=== PATIENT | female | born 1985 | race African-American/Black ===

== ENCOUNTER 2022-03-28 10:38 | Emergency (ER) | payer BC ==
--- OUTSIDE RECORDS SUMMARY | 2022-03-28 10:42 | XMS REPORT | Continuity of Care Document ---
:1985 Author Organization [facility] t Address [address] [place] [address] [place] [id number] Care Team Providers Name Role Phone Susan Bocanegra Primary Care Physician [phone] VANESSA Attending Clinician Unavailable Adan_Rudi Attending Clinician Unavailable Adam Attending Clinician Unavailable VANESSA Admitting Clinician Unavailable Sukila_Rudi Admitting Clinician Unavailable Luis Manuel_Carolyn Admitting Clinician Unavailable Payers Payer Name Policy Type Policy Number Effective Date Expiration Date S ource [place] [id number] 2021 [place] 00:[place]AND[place] [id number] 2020 2021 ADVANTAGE (HMO) 00:00:00 00:00:00 AETNA (POS) [id number] 2017 00:00:00 Problems Condition Condition Condition Status Onset Resolution Last Treating Co mments Source Name Details Category Date Date Treatment Clinician Date 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 [facility] diogram diogram 7-06 da abnormal Abnormal 00:00: Medica l 00 Group Benign Benign Problem Active [place] essential Essential 6-28 da hypertensi Hypertensi 00:00: Me dical on on Group Insertion Insertion Problem Active [facility] of of 4-22 da intrauteri Intrauteri 00:00: Me dical ne ne 00 Group contracept Contracept blake device blake Device Intramural Intramural Problem Active 2018-0 [facility] leiomyoma Leiomyoma 3-09 da of uterus of Uterus 00:00: Medi erin 00 Group Essential Essential Problem Active [facility] hypertensi Hypertensi da on on Medical Group Fatigue Fatigue Problem Active [facility] Acute Acute Problem Active [facility] sinusitis Sinusitis [facility] Diarrhea Diarrhea Problem Active [facility] Allergies, Adverse Reactions, Alerts This patient has no known allergies or adverse reactions. Social History Social Habit Start Date Stop Date Quantity Comments Source History [facility] Drinks History [facility] Tobacco use and 2018-03-11 2018-03-11 Smokeless tobacco [facility] exposure 00:00:00 00:00:00 non-user Hospital Alcohol intake 2018-03-11 2018-03-11 Current [facility] 00:00:00 00:00:00 non-drinker of Hospital alcohol (finding) History [facility] 2018-03-11 2018-03-11 1 [facility] Frequency 00:00:00 00:00:00 Hospita l Sex Assigned At [birth year] [facility] 00:00[facility]00 [facility] Smoking Status Start Date Stop Date Source Never smoked tobacco [facility] Medications Ordered Filled Start Stop Current Ordering Indication Dosage Frequency Signature Comments Components Source Medication Medication Date Date Medication? Clinician (SIG) Name Name pantoprazol 2018-03 Yes 40mg QD Take 1 Meth azeem e 2-03 tablet (40 st (PROTONIX) 00:00: mg total) [facility] sp[facility] 40 MG EC 00 by mouth l tablet daily. pantoprazol 2017-03 Yes 40mg QD Take 1 Meth azeem e 2-20 tablet (40 st (PROTONIX) 00:00: mg total) [facility] 40 MG EC 00 by mouth l tablet daily. amlodipine amlodipine No amlodipine [facility] 5 mg tablet 5 mg tablet 5 mg d a TAKE 1 TAKE 1 tablet Medical TABLET BY TABLET BY TAKE 1 Winston up MOUTH DAILY MOUTH DAILY TABLET BY MOUTH DAILY benzonatate benzonatate No 1capsul Q8H benzonatat [place] 200 mg 200 mg e(s) e 200 mg da capsule capsule capsule Medica l Take 1 Take 1 Take 1 Group capsule capsule capsule every 8 every 8 every 8 hours by hours by hours by oral route oral route oral route as needed. as needed. as needed. as needed as needed as needed for cough for cough for cough cefdinir cefdinir No 1capsul Q12H cefdinir [place] 300 mg 300 mg e(s) 300 mg da capsule capsule capsule Medica l Take 1 Take 1 Take 1 Group capsule capsule capsule every 12 every 12 every 12 hours by hours by hours by oral route oral route oral route for 10 for 10 for 10 days. days. days. hydrochloro hydrochloro No 1 Q1D hydrochlor [facility] thiazide thiazide othiazide da 12.5 mg 12.5 mg 12.5 mg Medica l tablet Take tablet Take tablet Group 1 tablet 1 tablet Take 1 every day every day tablet by oral by oral every day route. route. by oral route. Mirena 20 Mirena 20 No 1device Mirena 20 [place] mcg/24 mcg/24 (s) mcg/24 da hours (7 hours (7 hours (7 Med ical yrs) 52 mg yrs) 52 mg yrs) 52 mg Group intrauterin intrauterin intrauteri e device e device ne device Take 1 Take 1 Take 1 device by device by device by intrauterin intrauterin intrauteri e route. e route. ne route. Immunizations Ordered Immunization Filled Immunization Date Status Commen ts Source Name Name COVID-19, mRNA, COVID-19, mRNA, 2020-05-21 Completed Richard linton LNP-S, PF, 100 LNP-S, PF, 100 00:00:00 Medica l Group mcg/0.5 mL dose mcg/0.5 mL dose (Moderna) (Moderna) Tdap Tdap 2008-03-23 Completed [facility] 00:00:00 Medical Group Vital Signs Vital Name Observation Time Observation Value Comments Source BP Diastolic 2021-07-23 00:00:00 108 [facility]Hg[facility] Height 2021-07-23 00:00:00 65 [in_i] [facility] BMI (Body Mass 2021-07-23 00:00:00 40.6 kg/m2 [facility] Medical Index) Group BP Systolic 2021-07-23 00:00:00 158 mm[facility] Body Weight 2021-07-23 00:00:00 3904 [oz_av] [facility] BP Diastolic 2020-11-15 00:00:00 100 mm[Hg] [facility] Height 2020-11-15 00:00:00 65 [in_i] [facility] BMI (Body Mass 2020-11-15 00:00:00 39.4 kg/m2 [facility] Medical Index) Group BP Systolic 2020-11-15 00:00:00 150 mm[Hg] [facility] Body Weight 2020-11-15 00:00:00 3792 [oz_av] [facility] BP Diastolic 2020-09-17 00:00:00 108 mm[Hg] [facility] Height 2020-09-17 00:00:00 65 [in_i] [facility] BMI (Body Mass 2020-09-17 00:00:00 39.5 kg/m2 [facility] Medical Index) Group BP Systolic 2020-09-17 00:00:00 152 mm[Hg] [facility] Body Weight 2020-09-17 00:00:00 3799 [oz_av] [facility] BP Diastolic 2018-07-12 00:00:00 89 mm[Hg] [facility] Height 2018-07-12 00:00:00 65 [in_i] [facility] BMI (Body Mass 2018-07-12 00:00:00 36.5 kg/m2 [facility] Medical Index) Group BP Systolic 2018-07-12 00:00:00 129 mm[Hg] [facility] Body Weight 2018-07-12 00:00:00 219.4 [lb_av] [facility] Body Weight 2018-06-16 00:00:00 223 [lb_av] [facility] BP Diastolic 2018-06-16 00:00:00 90 mm[Hg] [facility] Height 2018-06-16 00:00:00 65 [in_i] [facility] BMI (Body Mass 2018-06-16 00:00:00 37.1 kg/m2 [facility] Medical Index) Group BP Systolic 2018-06-16 00:00:00 134 mm[Hg] [facility] Procedures Procedure Date / Time Performing Clinician Source Performed ECG WITH INTERPRETATION 2020-09-17 00:00:00 Ramos shaila Medical 12 LEADS Group US, pelvis 2018-07-12 00:00:00 [facility] Plan of Care Planned Activity Planned Date Details Comments Source Future Scheduled Test 2022-03-16 COVID-19 VACCINE [facility] 05:19:36 (#1) [code = COVID-19 VACCINE (#1)] Future Scheduled Test 2022-03-16 Screening for [facility] 05:19:36 malignant neoplasm of cervix (procedure) [code = 644095618] Future Scheduled Test 2022-03-16 INFLUENZA VACCINE [facility] 05:19:36 [code = INFLUENZA VACCINE] Diagnostic Test 2021-07-23 CMP, serum or Long M edical Pending 00:00:00 plasma [code = CMP, Group serum or plasma] Diagnostic Test 2021-07-23 lipid panel, serum [facility] voip technician Medical Pending 00:00:00 [code = lipid Group panel, serum] Diagnostic Test 2021-07-23 CBC w/ diff [code = [facility] Pending 00:00:00 CBC w/ diff] Group Encounters Start End Encounter Admission Attending Care Care Encounter Source Date/Time Date/Time Type Type Clinicians Facility Department ID 2021-10-10 2021-10-10 Outpatient DICLEBART_ VAANTHONY [facility] [id number] [place] 04:28:00 04:28:00 APPLE Garcia21 da [facility] Outre h Program 2021-09-18 2021-09-18 Outpatient Koudela_A [facility] [id number] [place] 04:48:00 04:48:00 629 [facility] Group 2021-09-04 2021-09-04 Outpatient K[facility]ela_A [facility] [place] [id number]- [place] 03:30:00 03:30:00 615 [facility] 2021-07-23 2021-07-23 Torie Koudela_A [facility] [place] - 5606- [id number] [place] 00:00:00 00:00:00 Discovery Adan 503 da PA-C: 600 [facility] - [address], [place] [address] , Ph. 2021-07-22 2021-07-22 Outpatient Koudela_A [facility] [id number] [place] 12:52:00 12:52:00 502 da Medical Group 2021-06-05 2021-06-05 Outpatient Koudela_A [facility] [id number] [place] 04:34:00 04:34:00 316 [facility] Medical Group 2021-03-02 2021-03-02 Outpatient K[facility]ela_A [facility] [id number] [place] 04:13:00 04:13:00 211 da Medical Group 2021-02-19 2021-02-19 Outpatient Koudela_A [facility] [id number] [place] 01:41:00 01:41:00 130 da Medical Group 2021-01-26 2021-01-26 Outpatient Koudela_A [facility] [id number] [place] 03:33:00 03:33:00 106 da Medical Group 2020-12-22 2020-12-22 Outpatient Koudela_A [facility] [id number] [place] 07:24:00 07:24:00 002 da Medical Group 2020-12-17 2020-12-17 Outpatient Koudela_A [facility] [id number]- [place] 12:27:00 12:27:00 927 da Medical Group 2020-11-17 2020-11-17 Outpatient Koudela_A [facility] [id number] [place] 02:30:00 02:30:00 828 [facility] Medical Group 2020-11-15 2020-11-15 Torie Koudela_A MM [place] - 5606- 10 [place] 00:00:00 00:00:00 Discovery Adan 826 da PA-C: [address] [facility] [address], [place] [address] , Ph. 2020-09-17 2020-09-17 Torie Membrenoudela_A MM [place] - 5606- 10 [place] 00:00:00 00:00:00 Discovery Adan 628 da PA-C: 600 Medical Medica [address] [place] [address] , Ph. 2020-09-15 2020-09-15 Outpatient G_Pappas [facility] [id number] [place] 03:24:00 03:24:00 626 da Medical Group 2020-09-14 2020-09-14 Outpatient G_Pappas [facility] MM [id number] [place] 05:19:00 05:19:00 625 da Medical Group 2020-02-08 2020-02-08 Outpatient G_Pappas [facility] MM [id number] [place] 02:21:00 02:21:00 118 da Medical Group 2019-07-20 2019-07-20 Outpatient G_Pappas [facility] MM [id number] [place] 12:41:00 12:41:00 429 da Medical Group 2019-06-15 2019-06-15 Outpatient G_Pappas [facility] MM [id number] [place] 01:18:00 01:18:00 325 da Medical Group 2019-05-05 2019-05-05 Outpatient G_Pappas [facility] MM [id number] [place] 03:25:00 03:25:00 213 da Medical Group 2018-07-12 2018-07-12 Irina Mendez [facility] [place] - [id number] [place] 00:00:00 00:00:00 Discovery René 422 da WHNP: 600 Medical Medica l [facility] [address] [address] , Ph. [phone] 2018-06-16 2018-06-16 [place] [facility] [place] - [id number] [place] 00:00:00 00:00:00 Devang Shirley 327 da Gabriela Tai Medicrudi zhou MD: [address] [address] , Ph. [phone] Results Test Description Test Time Test Comments Results Result Comments Source rapid strep group A, throat 2020-11-15 15:45:00 Test Item Value Reference Range Interpretation Comme nts Strep Result (test code = Strep Result) [id number] 16:00:33 Test Item Value Reference Range Interpretation Comments Test (test code = negative Test) [id number] 00:00:00 Test Item Value Reference Range Interpretation Comments HPV type-detect 3.0 by next gen not detected sequencing (reflex to HPV-16 risk assessment status) (test code = HPV type-detect 3.0 by next gen sequencing (reflex to HPV-16 risk assessment status)) General categories normal [interpretation] of Cervical or vaginal smear or scraping by Cyto stain (test code = 63665-7) [facility]
[2022-03-28 11:56] LABS: Urine Blood Negative (Negative); Urine Glucose Negative (Negative); Urine Protein Trace (Negative); Urine pH 7.5 (5.0-7.0)
[2022-03-28 12:01] LABS: Absolute Lymphocytes (CBC) 0.9 K/uL (0.7-4.9); Hematocrit 44.8 % (36.0-45.0); Lymphocytes % 26.4 % (15.3-44.8); MCV 87.9 fL (80-100); MPV 7.4 fL (7.6-11.3); RBC Red Blood Cell Count 5.09 M/uL (3.86-4.86)
[2022-03-28 12:04] LABS: Urine Bacteria None Seen /HPF (<20); Urine Mucus Slight /HPF (None Seen); Urine RBC <5 /HPF (None Seen)
[2022-03-28 12:24] LABS: Albumin 4.3 g/dL (3.4-5.0); Bilirubin Total 0.3 mg/dL (0.2-1.0); Potassium 3.5 mmol/L (3.5-5.1); Protein, Total 8.4 g/dL (6.4-8.2)
--- NOTE | 2022-03-28 13:13 | RAD REPORT ---
EXAM DESCRIPTION: CT - Abdomen Pelvis W Contrast - 03/28/2022 12:57 pm CLINICAL HISTORY: diffuse abdominal pain COMPARISON: No comparisons TECHNIQUE: Biphasic, helical CT imaging of the abdomen and pelvis was performed following 100 ml non -ionic IV contrast. Oral contrast: No. All CT scans are performed using dose optimization technique as appropriate and may include automated exposure control or mA/KV adjustment according to patient size. FINDINGS: No suspicious findings in the lung bases. The liver, spleen, and pancreas show no suspicious findings. Gallbladder and biliary tree are also wi thout suspicious finding. Symmetric renal function is seen with no hydronephrosis or suspicious renal mass. No pyelonephritis o r acute parenchymal process. No bladder abnormalities. No adrenal abnormalities. No ovarian or adnexal abnormality seen. IUD is in place in the fundal portion of the endometrial cavi ty. The patient has a 6 centimeter rounded isodense mass in the anterior mid and fundal portion of th e uterus. This posteriorly displaces the endometrial canal. Uterine fibroid is the single most likely etiology. No dilated bowel loops or bowel wall thickening. Appendix is normal. No acute GI process evident. No free air or pneumatosis. Trace amount of free fluid in the cul de sac is well within physiologic limi ts. No hernia, mass or bulky lymphadenopathy. No suspicious bony findings. IMPRESSION: Contrast enhanced CT abdomen and pelvis showing no acute or emergent finding. Anterior mid and fundal portion the uterus contains a 6 centimeter mass. Uterine fibroid is the singl e most likely etiology. IUD is in place appears well positioned. An acute GI, or SPECIAL PROCEDURES TECH process not i dentifiable.
[2022-03-28] MEDS ORDERED: KETOROLAC 30 MG/ML INJ ONE (14:46)
--- NOTE | 2022-03-28 15:16 | EDPHYS ---
Physician Documentation [facility] Name: Rod Harper Age: 36 yrs Sex: Female : 1985 Arrival Date: 03/28/2022 Time: 10:40 Bed 19 Private MD: ED Physician Jp Novak HPI: 03/28 13:33 This 36 yrs old Black Female presents to ER via Wheelchair with complaints of Abdominal ms3 Pain. 13:33 36-year-old female with past medical history of hypertension presents for lower ms3 abdominal pain that began yesterday. Patient states this is increased and is now located in her back beginning this morning. Patient rates her pain 10/10 headache described as stabbing. Patient states the pain is worse with movement. Patient denies urinary frequency, dysuria, urgency, fevers, chills, vomiting. Patient endorses nausea.. 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 - Social history:: Smoking status: Patient denies any tobacco usage or history of. ROS: 13:33 Constitutional: Negative for fever, and chills. Neck: Negative for injury, pain, and ms3 swelling, Cardiovascular: Negative for chest pain, and palpitations. Respiratory: Negative for shortness of breath, cough, wheezing, and pleuritic chest pain. 13:33 Abdomen/GI: Positive for abdominal pain, nausea, Negative for vomiting. Exam: 13:33 Constitutional: This is a well developed, well nourished patient who is awake, alert, ms3 and in no acute distress. Head/Face: Normocephalic, atraumatic. Neck: Trachea midline, no cervical lymphadenopathy. Supple, full range of motion without nuchal rigidity, or vertebral point tenderness. No Meningismus. Chest/axilla: Normal chest wall appearance and motion. Nontender with no deformity. Cardiovascular: Regular rate and rhythm with a normal S1 and S2. No gallops, murmurs, or rubs. Normal PMI, no JVD. No pulse deficits. Respiratory: Lungs have equal breath sounds bilaterally, clear to auscultation and percussion. No rales, rhonchi or wheezes noted. No increased work of breathing, no retractions or nasal flaring. 13:33 Abdomen/GI: Inspection: abdomen appears normal, Bowel sounds: normal, Palpation: moderate abdominal tenderness, in all quadrants. Vital Signs: 10:56 BP 136 / 97; Pulse 81; Resp 17; Temp 98.7; Pulse Ox 100% ; Weight 99.79 kg; Height 5 ap3 ft. 5 in. (165.10 cm); Pain 10/10; 12:15 BP 142 / 93; Pulse 74; Resp 18; Pulse Ox 99% on R/A; db 14:46 BP 129 / 92; Pulse 91; Resp 20; Pulse Ox 100% on R/A; Pain 10/10; db 15:00 BP 137 / 80; Pulse 78; Resp 18; Pulse Ox 99% on R/A; Pain 6/10; db 10:56 Body Mass Index 36.61 (99.79 kg, 165.10 cm) ap3 MDM: 11:04 Patient medically screened. ms3 13:33 Differential diagnosis: appendicitis, bowel obstruction, cholecystitis, Cholelithiasis, ms3 diverticulitis, gastritis, non-specific abd pain. 18:52 Data reviewed: vital signs, nurses notes, lab test result(s), radiologic studies, CT ms3 scan, and as a result, I will discharge patient. Counseling: I had a detailed discussion with the patient and/or guardian regarding: the historical points, exam findings, and any diagnostic results supporting the discharge/admit diagnosis, lab results, radiology results, the need for outpatient follow up, to return to the emergency department if symptoms worsen or persist or if there are any questions or concerns that arise at home. Special discussion: I discussed with the patient/guardian in detail that at this point there is no indication for admission to the hospital. It is understood, however, that if the symptoms persist or worsen the patient needs to return immediately for re-evaluation. ED course: Discussed labs, CT, physical exam findings with patient. Patient to follow-up with Dr. Paez and Dr. Nicholas in 2 to 3 days. Patient understands agrees with plan. All questions were answered. Return precautions discussed include worsening symptoms, or any other concerns. On reevaluation patient's pain improved, alert and oriented x4, no apparent distress, nontoxic-appearing, ambulatory in the emergency department. Consideration of hospitalization if CT scan showed emergent process. CT scan does not reveal emergent process at this time. . 03/28 11:05 Order name: CBC with Diff ms3 03/28 11:05 Order name: CMP; Complete Time: 13:25 ms3 03/28 11:05 Order name: Lipase; Complete Time: 13:25 ms3 03/28 11:05 Order name: Urine Microscopic Only; Complete Time: 13:25 ms3 03/28 11:56 Order name: Urine Dipstick-Ancillary; Complete Time: 13:25 EDMS 03/28 12:00 Order name: Urine --Ancillary (enter results); Complete Time: 13:25 eb 03/28 11:05 Order name: CT Abd/Pelvis - IV Contrast Only; Complete Time: 13:25 ms3 03/28 11:05 Order name: IV Saline Lock; Complete Time: 11:57 ms3 03/28 11:05 Order name: Labs collected and sent; Complete Time: 11:57 ms3 Administered Medications: 11:40 Drug: NS 0.9% 1000 ml Route: IV; Rate: 1 bolus; Site: right antecubital; db 15:19 Follow up: Response: No adverse reaction; IV Status: Completed infusion; IV Intake: db 1000ml 11:40 Drug: Zofran (Ondansetron) 4 mg Route: IVP; Site: right antecubital; db 15:19 Follow up: Response: No adverse reaction db 11:40 Drug: morphine 4 mg Route: IVP; Infused Over: 4 mins; Site: right antecubital; db 15:20 Follow up: Response: No adverse reaction db 14:46 Drug: Ketorolac 10 mg 10 mg Route: IVP; Site: right antecubital; db 15:36 Follow up: Response: No adverse reaction; Pain is decreased db Disposition Summary: 03/28/22 15:15 Discharge Ordered Location: Home ms3 Condition: Stable ms3 Diagnosis - Abdominal pain, Generalized ms3 - Essential (primary) hypertension ms3 - Low back pain ms3 Followup: ms3 - With: Paez, Epi, DO - When: 2 - 3 days - Reason: Recheck today's complaints Followup: ms3 - With: Leif Cuevas MD - When: 2 - 3 days - Reason: Recheck today's complaints Discharge Instructions: - Discharge Summary Sheet ms3 - Abdominal Pain, Adult ms3 - Hypertension, Adult ms3 Forms: - Medication Reconciliation Form ms3 - Thank You Letter ms3 - Antibiotic Education ms3 - Prescription Opioid Use ms3 Signatures: Dispatcher [employer] EDFabi Miller RN RN ap3 Jp Novak DO DO ms3 Cande Sarabia, RN RN db
--- NOTE | 2022-03-28 15:16 | ER ---
Nurse's Notes [facility] Name: Rod Harper Age: 36 yrs Sex: Female : 1985 Arrival Date: 03/28/2022 Time: 10:40 Bed 19 Private MD: Diagnosis: Abdominal pain, Generalized;Essential (primary) hypertension;Low back pain Presentation: 03/28 10:56 Chief complaint: Patient states: she started having abdominal pain yesterday, but now ap3 goes into her back. patient states she had a normal bowel movement yesterday and has had no issues urinating. the patient reports the pain gets worse when she moves, and nothing makes the pain better. the patient states the pain is currently a 10/10. Coronavirus screen: At this time, the client does not indicate any symptoms associated with coronavirus-19. Ebola Screen: No symptoms or risks identified at this time. Initial Sepsis Screen: Does the patient meet any 2 criteria? No. Patient's initial sepsis screen is negative. Does the patient have a suspected source of infection? No. Patient's initial sepsis screen is negative. Risk Assessment: Do you want to hurt yourself or someone else? Patient reports no desire to harm self or others. Onset of symptoms was March 27, 2022. 10:56 Method Of Arrival: Wheelchair ap3 10:56 Acuity: PEDRO 3 ap3 Triage Assessment: 11:00 General: Appears uncomfortable, Behavior is calm. Pain: Complains of pain in abdomen ap3 Pain radiates to low back area Aggravated by increased activity, repositioning, Also complains of nausea. Neuro: Level of Consciousness is awake, alert, obeys commands, Oriented to person, place, time, situation, Speech is normal. Cardiovascular: Patient's skin is warm and dry. Respiratory: Airway is patent Respiratory effort is even, unlabored, Respiratory pattern is regular, symmetrical. GI: Reports nausea, normal bowel habits. 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 - Social history:: Smoking status: Patient denies any tobacco usage or history of. Screenin:[facility] ED Fall Risk Assessment (Adult) History of falling in the last 3 months, ap3 including since admission No falls in past 3 months (0 pts). Abuse screen: Denies threats or abuse. Nutritional screening: No deficits noted. Tuberculosis screening: No symptoms or risk factors identified. Assessment: 11:30 Reassessment: Patient appears in no apparent distress at this time. Patient and/or db family updated on plan of care and expected duration. Pain level reassessed. Patient is alert, oriented x 3, equal unlabored respirations, skin warm/dry/pink. STATES HAS LEFT LOWER ABDOMINAL PAIN THAT STARTED YESTERDAY. DENIES N/V. General: Appears in no apparent distress. uncomfortable, Behavior is calm, cooperative. Pain: Complains of pain in low back area and abdomen. Neuro: No deficits noted. Level of Consciousness is awake, alert, obeys commands, Oriented to person, place, time, situation. Cardiovascular: No deficits noted. Respiratory: No deficits noted. Airway is patent Respiratory effort is even, unlabored, Respiratory pattern is regular, symmetrical. GI: Bowel sounds present X 4 quads. Abd is soft Abdomen is tender to palpation in right lower quadrant and left lower quadrant. : No deficits noted. No signs and/or symptoms were reported regarding the genitourinary system. Urine is clear. EENT: No deficits noted. No signs and/or symptoms were reported regarding the EENT system. 12:24 Reassessment: Patient appears in no apparent distress at this time. Patient and/or db family updated on plan of care and expected duration. Pain level reassessed. Patient is alert, oriented x 3, equal unlabored respirations, skin warm/dry/pink. 12:28 Reassessment: Patient appears in no apparent distress at this time. PATIENT SPOUSE db ASSISTED PATIENT TO THE RESTROOM VIA WHEELCHAIR. 14:46 Reassessment: Patient appears in no apparent distress at this time. NOTIFIED DR. ROBEL álvarez PATIENT IS COMPLAINING OF PAIN. DR. HUSTON STATES WILL ORDER TORADOL IVP FOR PATIENT PAIN. Vital Signs: 10:56 BP 136 / 97; Pulse 81; Resp 17; Temp 98.7; Pulse Ox 100% ; Weight 99.79 kg; Height 5 ap3 ft. 5 in. (165.10 cm); Pain 10/10; 12:15 BP 142 / 93; Pulse 74; Resp 18; Pulse Ox 99% on R/A; db 14:46 BP 129 / 92; Pulse 91; Resp 20; Pulse Ox 100% on R/A; Pain 10/10; db 15:00 BP 137 / 80; Pulse 78; Resp 18; Pulse Ox 99% on R/A; Pain 6/10; db 10:56 Body Mass Index 36.61 (99.79 kg, 165.10 cm) ap3 ED Course: 10:40 Patient arrived in ED. as 10:53 Jp Huston DO is Attending Physician. ms3 10:59 Triage completed. ap3 11:01 Arm band placed on left wrist. ap3 11:16 Cande Sarabia, MILADIS is Primary Nurse. db 11:35 Missed attempt(s): 20 gauge in left Bleeding controlled, band aid applied, catheter tip db intact. 11:40 Inserted saline lock: 22 gauge in right antecubital area, using aseptic technique. db Blood collected. 12:58 CT Abd/Pelvis - IV Contrast Only In Process Unspecified. EDMS 14:46 Patient has correct armband on for positive identification. Bed in low position. Call db light in reach. Side rails up X 1. Pulse ox on. NIBP on. Warm blanket given. 15:15 Epi Paez DO is Referral Physician. ms3 15:15 Leif Cuevas MD is Referral Physician. ms3 15:30 No provider procedures requiring assistance completed. IV discontinued, intact, db bleeding controlled, No redness/swelling at site. Administered Medications: 11:40 Drug: NS 0.9% 1000 ml Route: IV; Rate: 1 bolus; Site: right antecubital; db 15:19 Follow up: Response: No adverse reaction; IV Status: Completed infusion; IV Intake: db 1000ml 11:40 Drug: Zofran (Ondansetron) 4 mg Route: IVP; Site: right antecubital; db 15:19 Follow up: Response: No adverse reaction db 11:40 Drug: morphine 4 mg Route: IVP; Infused Over: 4 mins; Site: right antecubital; db 15:20 Follow up: Response: No adverse reaction db 14:46 Drug: Ketorolac 10 mg 10 mg Route: IVP; Site: right antecubital; db 15:36 Follow up: Response: No adverse reaction; Pain is decreased db Medication: 14:46 VIS not applicable for this client. db Intake: 15:19 IV: 1000ml; Total: 1000ml. db Outcome: 15:15 Discharge ordered by . ms3 15:30 Discharged to home ambulatory. db 15:30 Condition: stable 15:30 Discharge instructions given to patient, Instructed on discharge instructions, follow up and referral plans. Demonstrated understanding of instructions, follow-up care. 15:36 Patient left the ED. db Signatures: Dispatcher [employer] EDMS Shanthi Gavin Amanda RN RN ap3 Jp Huston DO DO ms3 Cande Sarabia RN RN db Corrections: (The following items were deleted from the chart) 12:00 11:59 Inserted saline lock: 22 gauge in right antecubital area, using aseptic db technique. Blood collected. db 14:48 14:46 Client placed on continuous cardiac and pulse oximetry monitoring. NIBP db monitoring applied. db
[2022-03-28 16:20] VITALS: TEMP 98.7
[2022-03-28 16:23] VITALS: BP 137/80; O2SAT 99
== END 2022-03-28 15:36 | disposition home or self-care (01) ==
LOC: ER 10:38
DX: R10.84 Generalized abdominal pain (principal); M54.50 Low back pain, unspecified; I10 Essential (primary) hypertension
CPT/HCPCS: 96361; 85025; 36415; 81025; 83690; 80053; 74177; 96375; 96374; 99284; Q9967; 81003; 81015

== ENCOUNTER 2022-04-29 10:00 | Day surgery (SDC) | payer BC ==
[2022-04-29] MEDS ORDERED: Ringers Lactate 1,000 ML IV ONE (10:21)
[2022-04-29] MEDS ORDERED: LIDOCAINE 2% MPF 5 ML VIAL ONE (10:41)
[2022-04-29] MEDS ORDERED: MIDAZOLAM HCL 2 MG/2 ML INJ ONE (10:41)
[2022-04-29] MEDS ORDERED: FENTANYL CITR 100 MCG/2 ML ONE (10:41)
[2022-04-29] MEDS ORDERED: propofoL 200 MG/20 ML VIAL IV ONE ×2 (10:41→11:35)
[2022-04-29] MEDS ORDERED: ONDANSETRON 4 MG/2 ML VIAL ONE ×2 (10:41→11:32)
[2022-04-29] MEDS ORDERED: SILVER NITRATE 1 APPL TOP ONE (10:42)
[2022-04-29] MEDS ORDERED: LIDOCAINE 1% W/EPI 1:100,000 30 ML VIAL ONE (10:42)
[2022-04-29] MEDS ORDERED: NA CHLORIDE 0.9% 1,000 ML ONE (10:47)
[2022-04-29] MEDS ORDERED: KETOROLAC 30 MG/ML INJ ONE (11:32)
[2022-04-29] MEDS ORDERED: dexAMETHasone 10 MG/ML VIAL ONE (11:32)
[2022-04-29] MEDS ORDERED: HYDROCODONE/APAP 7.5/325 MG TAB ONE (12:56)
[2022-04-29 14:21] VITALS: BP 149/81; TEMP 97.4; O2SAT 94
--- NOTE | 2022-04-29 19:38 | OP ---
Date of Procedure: 04/29/2022 Surgeon: Emma Montes MD Preoperative Diagnoses: Retained intrauterine device and abnormal uterine bleeding-O. Postoperative Diagnoses: Retained intrauterine device and abnormal uterine bleeding-O. Procedures Performed: Diagnostic hysteroscopy, dilation and curettage, and hysteroscopy with removal of retained intrauterine device. Anesthesia: MAC plus paracervical block. Specimens: Endometrial curettings. Picture of the IUD taken and it was intact. The specimen not se nt. Complications: No complications. Drains: No drains. Condition: Stable. Findings: Retroverted cavity. Enlarged uterus about 18 weeks size. Slightly narrowed cavity with I UD in place. The strings were very small, just right at the internal os and removed under direct vis ion with an operative hysteroscope. Procedure In Detail: After informed consent was verified, the patient was taken back to the OR, and placed in supine fashion on the operating table. After MAC was given placed in a dorsal lithotomy po sition. Vulva and vagina were prepped with Betadine and draped. Speculum was placed to expose the c ervix. Anterior lip injected with 1% lidocaine mixed with 1:100,000 epinephrine. 8 cc was injected and then at 4 and 8 o'clock positions at the cervicovaginal junction, 5 cc each for a paracervical bl ock. Allis clamps were placed on the anterior lip and diagnostic SlimLine hysteroscope was used to e nter the cervical canal and traverse into the uterine cavity. Strings at the internal os and IUD in the cavity were found. Cavity was narrow. Scope pulled out. Operative sheath was taken and with 30 -degree lens, graspers were introduced through the operative port. The scope was introduced into the cervical canal and under direct vision placing this at the level of the internal os, the strings wer e grasped with a grasper and the entire scope pulled out, thereby removing the IUD intact. Once this was inspected completely, this was discarded and picture taken. Dilated to 16-Chilean and #2 curette was used to perform endometrial curettings globally and handed off for permanent pathology. All ins truments were removed. Instrument, needle, and sponge counts were correct at the end of the case. T he patient tolerated the procedure well. She recovered from anesthesia and was taken to PACU in stab le condition. She will have a followup appointment with me in the office. We will plan surgical int ervention likely laparoscopic hysterectomy with vaginal morcellation, bilateral salpingectomy, possib le endometriosis and excision if seen. BRENNAN Voice ID: [id number] Report ID: [id number]
== END 2022-04-29 13:43 | disposition home or self-care (01) ==
LOC: OR 10:00
PROVIDERS: ATTEND Obstetrics & Gynecology
PROC: 0UDB8ZX Extraction of Endometrium, Via Natural or Artificial Opening Endoscopic, Diagnostic (ICD-10-PCS; principal; 2022-04-29 11:30)
DX: N93.9 Abnormal uterine and vaginal bleeding, unspecified (principal); T83.39XA Other mechanical complication of intrauterine contraceptive device, initial encounter; R10.2 Pelvic and perineal pain; I10 Essential (primary) hypertension
CPT/HCPCS: 88305; 58558; 58562; J2704 ×2; J2001; J2250; J3010; J1100; J7120; J7030; J2405 ×2

== ENCOUNTER 2022-12-11 10:08 | Emergency (ER) | payer BC, OTHER ==
--- OUTSIDE RECORDS SUMMARY | 2022-12-11 10:18 | XMS REPORT | Continuity of Care Document ---
:1985 Author Organization [facility] t Address [address] [facility]. [address] [place] [address] Care Team Providers Name Role Phone Susan Bocanegra Primary Care Physician [phone] [email or web address]_S Attending Clinician Unavailable KoGerardo Attending Clinician Unavailable Emma Montes Attending Clinician Unavailable GE WEISS Attending Clinician Unavailable Doctor Unassigned, [facility] Attending Clinician Unavailable ANA SORIANO Attending Clinician Unavailable ANA SORIANO Attending Clinician Unavailable Aaron Roberts MD Attending Clinician 1, [facility] Us Room Attending Clinician Unavailable AARON ROBERTS Attending Clinician Unavailable Luis Alston MD Attending Clinician LUIS ALSTON Attending Clinician Unavailable VANESSA Attending Clinician Unavailable Luis Manuel_Carolyn Attending Clinician Unavailable [email or web address]_Kadiyala_S Admitting Clinician Unavailable Koudela_A Admitting Clinician Unavailable KNOW, DOES_NOT Admitting Clinician Unavailable VANESSA Admitting Clinician Unavailable Adam Admitting Clinician Unavailable Payers Payer Name Policy Type Policy Number Effective Date Expiration Date [facility] [id number] 2022 00:00:00 [place] [id number] 2021 [place]PP[place] 00:[place]:00 [place] [id number] 2021 00:00:00 [place] [id number] 2021 ADVANTAGE (HMO) 00:00:00 00:00:00 AETNA (POS) [id number] 2017 00:00:00 Problems Condition Condition Condition Status Onset Resolution Last Treating Co mments Source Name Details Category Date Date Treatment Clinician Date Menorrhagi Menorrhagi Disease Active U nivers a with a with 1-26 ity of irregular irregular 00:00: [place] s cycle cycle 00 Medical Branch Presence Presence Disease Active Unive rs of of -26 [place] of [place] Medical contracept contracept Br anch blake device blake device Enlarged Enlarged Disease Active Unive rs uterus uterus 1-26 ity of 00:00: [place] 00 Medical Branch Hemorrhagi Hemorrhagi Disease Active U nivers c cyst of c cyst of -26 [place]y of left ovary [place] BMI BMI Disease Active Univers 38.0-38.9, 38.0-38.9, 1-26 it y of adult adult 00:00: Medical Branch Pain Pain Disease Active Univers pelvic pelvic 1-09 ity of 00:00: [place] 00 Medical Branch 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 M at[place] diogram diogram 7-06 da abnormal Abnormal 00:00: Medica l 00 Group Benign Benign Disease Active Univers essential essential 6-28 ity of hypertensi hypertensi [place] Encounter Encounter Disease Active Uni vers for for 4-22 ity of initial initial 00:00: [place] insertion insertion 00 Medi erin of of Branch intrauteri intrauteri ne ne contracept contracept blake device blake device Insertion Insertion Problem Active [place] of of 4-22 da intrauteri Intrauteri 00:00: Me dical ne ne 00 Group contracept Contracept blake device blake Device Uterine Uterine Disease Active Univers leiomyoma, leiomyoma, 05-29 it y of unspecifie [place]specifie [place] d location 00 Mn dical Branch Intramural Intramural Problem Active M [facility] leiomyoma Leiomyoma 05-29 da of uterus of Uterus 00:00: Medi erin 00 Group Essential Essential Problem Active [place] hypertensi Hypertensi da on on Medical Group Fatigue Fatigue Problem Active [facility] Acute Acute Problem Active [facility] sinusitis Sinusitis [facility] Diarrhea Diarrhea Problem Active [facility] Allergies, Adverse Reactions, Alerts Allergy Allergy Status Severity Reaction(s) Onset Inactive Treating Comm ents Source Name Type Date Date Clinician No Known DA Active U [facility] Allergie 05-28 [place] [facility] NO KNOWN Drug Active Univers ALLERGIE Class ity of S [facility] Social History Social Habit Start Date Stop Date Quantity Comments Source History SDMA [facility] Alcohol Std Drinks Hospit al Sexual orientation Method ist Hospital History [facility] Sabianist Alcohol Binge Hospital Exposure to 2022-03-31 2022-04-10 Not sure [facility] SARS-CoV-2 (event) 00:00:00 14:41:00 [facility] Tobacco use and 2022-03-31 2022-03-31 Smokeless Universit y of exposure 00:00:00 00:00:00 tobacco non-user [facility] Alcohol Comment 2022-03-31 2022-03-31 rare Universit y of 00:00:00 00:00:00 [facility] History of Social 2018-11-11 2018-11-[address] function 00:00:00 00:00:00 Hospital Alcohol intake 2018-03-11 2018-03-11 Current [facility] 00:00:00 00:00:00 non-drinker of Hospital alcohol (finding) History [facility] 2018-03-11 2018-03-11 1 [facility] Alcohol Frequency 00:00:00 00:00:00 Hospita l Sex Ass[birth year] At [birth year] Sabianist 00:00:00 00:00:00 Hospital Smoking Status Start Date Stop Date Source Never smoked tobacco [facility] Medications Ordered Filled Start Stop Current Ordering Indication Dosage Frequency Signature Comments Components Source Medication Medication Date Date Medication? Clinician (SIG) Name Name amLODIPine 0 Yes amlodipine U nivers 5 mg tablet 1-09 5 mg ity of 14:52: tablet [place] TAKE 1 Medical TABLET BY Branch MOUTH DAILY amLODIPine 2022-0 Yes amlodipine U nivers 5 mg tablet -09 5 mg ity of 14:52: tablet [place] TAKE 1 Medical TABLET BY Branch MOUTH DAILY amLODIPine 0 Yes amlodipine U nivers 5 mg tablet -09 5 mg ity of 14:52: tablet [place] TAKE 1 Medical TABLET BY Branch MOUTH DAILY amLODIPine Yes amlodipine U nivers 5 mg tablet - 5 mg ity of 14:52: tablet [place] [address] TAKE 1 Medical TABLET BY Branch MOUTH DAILY amLODIPine 0 Yes amlodipine U nivers 5 mg tablet -09 5 mg ity of 14:52: tablet [place] [address] TAKE 1 Medical TABLET BY Branch MOUTH DAILY amLODIPine 0 Yes amlodipine U nivers 5 mg tablet -09 5 mg ity of 14:52: tablet [place] [address] TAKE 1 Medical TABLET BY Branch MOUTH DAILY amLODIPine 0 Yes amlodipine U nivers 5 mg tablet -09 5 mg ity of 14:52: tablet [place] [address] TAKE 1 Medical TABLET BY Branch MOUTH DAILY amLODIPine 0 Yes amlodipine U nivers 5 mg tablet -09 5 mg ity of 14:52: tablet [place] [address] TAKE 1 Medical TABLET BY Branch MOUTH DAILY amLODIPine 2022-0 Yes amlodipine U nivers 5 mg tablet -09 5 mg ity of 14:52: tablet [place] [address] TAKE 1 Medical TABLET BY Branch MOUTH DAILY amLODIPine 2022-0 Yes amlodipine U nivers 5 mg tablet -09 5 mg ity of 14:52: tablet [place] [address] TAKE 1 Medical TABLET BY Branch MOUTH DAILY amLODIPine 2022-0 Yes amlodipine U nivers 5 mg tablet -09 5 mg ity of 14:52: tablet [place] [address] TAKE 1 Medical TABLET BY Branch MOUTH DAILY amLODIPine 2022-0 Yes amlodipine U nivers 5 mg tablet -09 5 mg ity of 14:52: tablet [place] [address] TAKE 1 Medical TABLET BY Branch MOUTH DAILY pantoprazol 2018-03 Yes 40mg QD Take 1 Meth azeem e 2-03 tablet (40 st (PROTONIX) 00:00: mg total) Ho spita 40 MG EC 00 by mouth l tablet daily. pantoprazol 2018-03 Yes 40mg QD Take 1 Meth azeem e 2-03 tablet (40 st (PROTONIX) 00:00: mg total) Ho spita 40 MG EC 00 by mouth l tablet daily. pantoprazol 2018-03 Yes 40mg QD Take 1 [...] intrauteri e route. e route. ne route. Vital Signs Vital Name Observation Time Observation Value Comments Source Systolic blood 2022-04-17 22:19:00 151 mm[Hg] Univer sity [facility] Diastolic blood 2022-04-17 22:19:00 99 mm[Hg] Unive [facility] Respiratory rate 2022-04-17 22:18:00 16 /min [facility] Body height 2022-04-17 22:18:[address] [facility] Body weight 2022-04-17 22:18:[address] [facility] BMI 2022-04-17 22:18:00 38.97 kg/m2 [facility] Oxygen saturation in 2022-04-17 22:18:00 99 /min [facility] Arterial blood by [facility] Pulse oximetry Branch Heart rate 2022-04-17 22:18:00 84 /min [facility] Body temperature 2022-04-17 22:18:00 36.33 Elida [facility] Systolic blood 2022-03-31 20:51:00 123 mm[Hg] Univer sity [facility] Diastolic blood 2022-03-31 20:51:00 84 mm[Hg] Unive [facility] Heart rate 2022-03-31 20:50:00 76 /min [facility] Respiratory rate 2022-03-31 20:50:00 18 /min [facility] Body height 2022-03-31 20:50:[address] [facility] Body weight 2022-03-31 20:50:[address] [facility] BMI 2022-03-31 20:50:00 37.77 kg/m2 [facility] BP Diastolic 2021-07-23 00:00:00 108 mm[Hg] [facility] Height 2021-07-23 00:00:00 65 [in_i] [facility] BMI (Body Mass 2021-07-23 00:00:00 40.6 kg/m2 [facility] Group BP Systolic 2021-07-23 00:00:00 158 mm[Hg] [facility] Body Weight 2021-07-23 00:00:00 3904 [oz_av] [facility] BP Diastolic 2020-11-15 00:00:00 100 mm[Hg] [facility] Height 2020-11-15 00:00:00 65 [in_i] [facility] BMI (Body Mass 2020-11-15 00:00:00 39.4 kg/m2 [facility] Index) Group BP Systolic 2020-11-15 00:00:00 150 mm[Hg] [facility] Body Weight 2020-11-15 00:00:00 3792 [oz_av] [facility] BP Diastolic 2020-09-17 00:00:00 108 mm[Hg] [facility] Height 2020-09-17 00:00:00 65 [in_i] [facility] BMI (Body Mass 2020-09-17 00:00:00 39.5 kg/m2 [facility] Index) Group BP Systolic 2020-09-17 00:00:00 152 mm[Hg] [facility] Body Weight 2020-09-17 00:00:00 3799 [oz_av] [facility] BP Diastolic 2018-07-12 00:00:00 89 mm[Hg] [facility] Height 2018-07-12 00:00:00 65 [in_i] [facility] BMI (Body Mass 2018-07-12 00:00:00 36.5 kg/m2 [facility] BP Systolic 2018-07-12 00:00:00 129 mm[Hg] [facility] Body Weight 2018-07-12 00:00:00 219.4 [lb_av] [facility] BP Diastolic 2018-06-16 00:00:00 90 mm[Hg] [facility] Height 2018-06-16 00:00:00 65 [in_i] [facility] BMI (Body Mass 2018-06-16 00:00:00 37.1 kg/m2 [facility] BP Systolic 2018-06-16 00:00:00 134 mm[Hg] [facility] Body Weight 2018-06-16 00:00:00 223 [lb_av] [facility] Procedures Procedure Date / Time Performing Clinician Source Performed AUTHORIZATION FOR RELEASE 2022-04-22 06:01:00 Doctor Unassigned, [facility] ASSIGNMENT OF BENEFITS 2022-04-10 20:43:01 Doctor Unassigned, [facility] AUTHORIZATION TO RELEASE 2022-03-31 06:01:00 Doctor Unassigned, [facility] TO [facility] ECG WITH INTERPRETATION 2020-09-17 00:00:00 Richard [facility] 12 LEADS Group US, pelvis 2018-07-12 00:00:00 Issac Mn dical Group Plan of Care Planned Activity Planned Date Details Comments Source Future Scheduled Test 2022-11-26 COVID-19 VACCINE [facility] 01:52:15 (#1) [code = COVID-19 VACCINE (#1)] Future Scheduled Test 2022-11-26 Screening for [facility] 01:52:15 malignant neoplasm of cervix (procedure) [code = 568256681] Future Scheduled Test 2022-11-26 INFLUENZA VACCINE [facility] 01:52:15 (#1) [code = INFLUENZA VACCINE (#1)] Future Scheduled Test 2022-03-16 COVID-19 VACCINE [facility] 05:19:36 (#1) [code = COVID-19 VACCINE (#1)] Future Scheduled Test 2022-03-16 Screening for [facility] 05:19:36 malignant neoplasm of cervix (procedure) [code = 181733754] Future Scheduled Test 2022-03-16 INFLUENZA VACCINE [facility] 05:19:36 [code = INFLUENZA VACCINE] Future Scheduled Test 2022-03-16 COVID-19 VACCINE [facility] 05:19:36 (#1) [code = COVID-19 VACCINE (#1)] Future Scheduled Test 2022-03-16 Screening for [facility] 05:19:36 malignant neoplasm of cervix (procedure) [code = 859276791] Future Scheduled Test 2022-03-16 INFLUENZA VACCINE [facility] 05:19:36 [code = INFLUENZA VACCINE] Diagnostic Test 2021-07-23 CMP, serum or [place] [facility] Pending 00:00:00 plasma [code = CMP, Group serum or plasma] Diagnostic Test 2021-07-23 lipid panel, serum [facility] Pending 00:00:00 [code = lipid Group panel, serum] Diagnostic Test 2021-07-23 CBC w/ diff [code = [facility] Pending 00:00:00 CBC w/ diff] Group Encounters Start End Encounter Admission Attending Care Care Encounter Source Date/Time Date/Time Type Type Clinicians Facility Department ID 2022-10-10 2022-10-10 Outpatient GC_GCBZW_Ka PRIV PRIV [id number] [facility] 00:00:00 00:00:00 diyala_S [id number] Medic al 2022-10-10 2022-10-10 Outpatient GC_GCBZW_Ka PRIV PRIV [id number] [facility] 00:00:00 00:00:00 diyala_S [id number] Medic al 2022-06-05 2022-06-05 Outpatient Koudela_A MMG MMG [id number] [place] 00:00:00 00:00:00 316 [facility] 2022-05-29 2022-05-29 Outpatient KUMAR Rodriguez [id number] [facility] 05:41:00 05:41:00 Emma Holt [facility] 2022-04-23 2022-04-23 Outpatient R [facility] [id number] Univers 11:00:00 11:00:00 ity [facility] 2022-04-22 2022-04-22 Orders Doctor SARAH [id number] Univers 00:00:00 00:00:00 Only Unassigned, JASPER 350.1.13.10 ity of [facility] 4.2.7.2.686 [place] [id number] [address] 2022-04-21 2022-04-21 Outpatient R JENNYANA VO [facility] B [id number] Univers 13:30:00 13:30:00 ANA SORIANO [facility] 2022-04-17 2022-04-17 Outpatient R BREONNAMIGUEL [facility] B [id number] Univers 16:00:00 16:41:01 BOGAYATHRIFABI [facility] 2022-04-17 2022-04-17 [facility] 1.2.840.114 [id number] Univers 16:00:00 16:41:01 Visit Ana BIANCA 350.1.13.10 it y of [place] [id number] [facility] 134 Branch 2022-04-10 2022-04-10 Office Aaron Roberts [facility] 1.2.8 40.114 [id number] Univers 15:30:00 16:00:00 Visit 1, Richi [facility] Usg Room HEALTH 350.1.13.1 0 it[place] [id number] [facility][note 2] 104 Branch OFFICE BUILDING 2022-04-10 2022-04-10 Outpatient R ALEJANDRA [facility] [id number] Univers 15:30:00 15:30:00 AARON castrejon [facility] 2022-04-10 2022-04-10 Orders Doctor SMITH 1.2.840.114 [id number] Univers 00:00:00 00:00:00 Only Unassigned, JASPER 350.1.13.10 [facility]y of [facility] 4.2.7.2.686 [place] [id number] [address] 2022-04-02 2022-04-02 Telephone [facility] 1.2.840.11 [id number] Univers 00:00:00 00:00:00 Ana VALENZUELA 350.1.13.10 it y of [place] [id number] [address] 2022-04-02 2022-04-02 Telephone [facility] 1.2.840.11 [id number] Univers 00:00:00 00:00:00 Ana VALENZUELA 350.1.13.10 it y [place] [id number] [address] 2022-03-31 2022-03-31 Office Rolo [facility] 1.2.840.114 [id number] Univers 14:30:00 15:25:32 Visit sLuis 350.1.13.10 ity of WOMEN'S 4.2.7.2.686 [facility] [id number] [address] 2022-03-31 2022-03-31 Outpatient R LUIS ALSTON [facility] U TMB [id number] Univers 14:30:00 15:25:32 LUIS ALSTON ity of [facility] 2022-03-31 2022-03-31 Orders Doctor SMITH 1.2.840.114 [id number] Univers 00:00:00 00:00:00 Only Unassigned, JASPER 350.1.13.10 ity of [facility] 4.2.7.2.686 [place] [id number] [place] [address] Branch 2021-10-10 2021-10-10 Outpatient DICLEMENTE_ JOJO URIBE [id number] [place] 04:28:00 04:28:00 APPLE Valencia da [facility] Outre h Program 2021-09-18 2021-09-18 Outpatient Koudela_A MMG [facility] [id number] [place] 04:48:00 04:48:00 [facility] 2021-09-04 2021-09-04 Outpatient Koudela_A MMG MMG [id number] [place] 03:30:00 03:30:00 615 [facility] 2021-07-23 2021-07-23 Torie Koudela_A MMG [place] - 5606- [place] 00:00:00 00:00:00 Discovery Adan 503 da PA-C: 600 Medical [facility] [address], [facility], [place] [address] , Ph. 2021-07-22 2021-07-22 Outpatient Koudela_A MMG [facility] [id number]- [place] 12:52:00 12:52:00 502 [facility] 2021-06-05 2021-06-05 Outpatient Koudela_A MMG [facility] [id number]- [place] 04:34:00 04:34:00 316 [facility] 2021-03-02 2021-03-02 Outpatient Koudela_A MMG [facility] [id number] [place] 04:13:00 04:13:00 211 [facility] 2021-02-19 2021-02-19 Outpatient Koudela_A MMG [facility] [id number] [place] 01:41:00 01:41:00 130 [facility] 2021-01-26 2021-01-26 Outpatient Koudela_A MMG [facility] [id number] [place] 03:33:00 03:33:00 106 [facility] 2020-12-22 2020-12-22 Outpatient Koudela_A MMG [facility] [id number] [place] 07:24:00 07:24:00 002 [facility] Medical Group 2020-12-17 2020-12-17 Outpatient Koudela_A MMG [facility] [id number] [place] 12:27:00 12:27:00 927 [facility] Group 2020-11-17 2020-11-17 Outpatient Koudela_A MMG [facility] [id number] [place] 02:30:00 02:30:00 828 [facility] 2020-11-15 2020-11-15 Torie Koudela_A MMG [place] - [id number]- [id number] [place] 00:00:00 00:00:00 Discovery Adan 826 da PA-C: 600 [facility] [address], [facility] [place] [address] , Ph. 2020-09-17 2020-09-17 Torie Membrenojulianastanton_A MM [place] - [id number] 10 [place] 00:00:00 00:00:00 Discovery Adan 628 da PA-C: 600 [facility] [address], [facility] [place] [address] , Ph. 2020-09-15 2020-09-15 Outpatient G_Pappas MMG [facility] [id number] [place] 03:24:00 03:24:00 626 [facility] 2020-09-14 2020-09-14 Outpatient G_Pappas MMG [facility] [id number] [place] 05:19:00 05:19:00 625 [facility] 2020-02-08 2020-02-08 Outpatient G_Pappas MMG MM [id number] [place] 02:21:00 02:21:00 118 [facility] 2019-07-20 2019-07-20 Outpatient G_Pappas MMG MMG [id number] [place] 12:41:00 12:41:00 429 [facility] 2019-06-15 2019-06-15 Outpatient G_Pappas MMG [facility] [id number] [place] 01:18:00 01:18:00 325 [facility] 2019-05-05 2019-05-05 Outpatient G_Pappas MMG MM [id number] [place] 03:25:00 03:25:00 213 [facility] 2018-07-12 2018-07-12 Irina Mendez MM [place] - [id number] 190 [place] 00:00:00 00:00:00 Discovery René 422 da WHNP: 600 [facility], [facility] [address] [address] , Ph. [phone] 2018-06-16 2018-06-16 Socorro [facility] [place] - [id number] [facility] 00:00:00 00:00:00 Devang Shirley 327 Gabriela Nelson MD: 600 [facility] [address], [place] [address] , Ph. [phone] Results Test Description Test Time Test Comments Results Result Comments Source SURGICAL 2022-05-30 15:34:00 Test Item Value Reference Range Interpretation Comme nts SURGICAL RUN DATE: (test 05/30/22 [facility] LAB PAGE 1 RUN TIME: 1534 Specimen Inquiry RUN USER: INTERFACE code = PATIENT: JAMIA GONZALEZ ACCT #: [place] [id number] LOC: [facility] U #: [id number] AGE/SX: 36/F ROOM: RE05/29/22REG DR: Emma Montes MD : 84 BED: DIS: STAT US: [facility]IMUNDO [facility] TLOC: SPEC #: [id number]:[id number] RECD: 05/29/221101 STATUS: NINO BOOKER #: [id number] TRISHA: 05/29/229[address] [facility] DR: Emma Montes MD SP TYPE: SURGICAL OTHR DR: ORDERED: [id number], 67410, ANATOMIC SPEC, SPECIMEN TRA K PROCEDURES: [id number] (05/30/22) 10375 (05/30/22) SPECIMEN TRACK (05/29/22) TISSUES: A. UTERUS - UTERUS, CERVIX, AND FALLOPIAN TUBES B. UTERUS - LEFT UTERINE OVARIAN LIGMENT FINAL DIAGNO SIS A. UTERINE OVARIAN LIGAMENT, LEFT, BIOPSY: - Benign dense fibrous tissue. B. UTERUS, CERVIX, B ILATERAL FALLOPIAN TUBES, TOTAL HYSTERECTOMY AND BILATERAL SALPINGECTOMY:- Leiomyomata, 5.5 cm in great est dimension.- Cervix without dysplasia.- Proliferative endometrium.- Unremarkable serosa and Fall opian tubes.- Paratubal cyst.- Specimen 352 g. GROSS DESCRIPTION A. Left uterine ovarian ligament. It consists of a single krueger white fibrous tissuefragment measuring 0.5 x 0.4 x 0.3 cm, entirely submitted as A1. B. Uterus with bilateral fallopian tubes. Received is a uterus that weighs 352 andmeasures cornu to cornu 9.5 cm, posterior to anterior 6.5 cm, and fundus to cervix 13.5 cm.The cervix measures 3.7 x 2.5 cm with a cervical os transverse diameter of 1.2 cm. Theuterus is bivalved to reveal pink s mooth cervical canal of 5.5 cm in length. Theendometrial cavity measures 4.2 x 2.3 cm and covered by endometrium of 0.3 cm in thickness.The uterine wall ranges 3-5 cm in greatest dimension. Sectioni ng through the uterine wallreveals 5 white well- circumscribed nodules ranging 0.8-5.[address] dimension. Thesenodules are located in the posterior and anterior galvez. The serosal surface i s smoothwith an area of defect on the posterior wall measuring 6.5 x 4 cm. The attached rightfallopian tube with fimbriated end measures 5.5 cm in length and has a diameter of 0.8 cm. There is a paratubal cyst measuring 0.7 cm filled with clear fluid. The left fallopian tubewith fimbriated end chacorta ures 7.5 cm in length and has a diameter of 1 cm. B1 posterior cervixB2 anterior cervix CONTINUED ON NEXT PAGE RUN DATE: 05/30/22 [facility] Renetta perez ELY PAGE 2 RUN TIME: 1533 Specimen Inquiry RUN USER: INTERFACE SPEC #: [id number]:[id number] PATIENT: JAMIA DOUGHERTY #[id number] (Continued) - GROSS DESCRIPTION (Contin ued) B3 posterior endomyometriumB4 anterior endomyometrium B5-B10 sections of uterine wall nodules B11 right fallopian tube cut surface with entire bisected fimbriated end and [id number] left fallop yue tube cut surface with entire bisected fimbriated endB13 section area of defect Technical tissue p rocessing and slide preparation performed at [facility], [place] [id number] [facility] COPIC DESCRIPTION A and B. Microscopic examination is performed and the findings are incorporated into thefinal diagnosis. Ple ase see diagnosis for findings. Signed SIGNATURE ON FILE Tanna Foley 05/30/22 1534 END OF REPORT CBC W/AUTO [id number] 17:25:00 Test Item Value Reference Range Interpretation Comments WHITE BLOOD CELL (test code = 4.2 K/mm3 3.5-11.0 N WBC) RED BLOOD CELL (test code = 4.01 M/mm3 4.70-6.10 L RBC) HEMOGLOBIN (test code = HGB) 11.6 G/DL 10.4-14.9 N HEMATOCRIT (test code = HCT) 35.9 % 31.5-44.1 N MEAN CELL VOLUME (test code = 89.5 Fl 84.5-98.6 N MCV) MEAN CELL HGB (test code = MCH) 28.9 pg 27.0-34.2 N MEAN CELL HGB CONCETRATION 32.3 G/DL 31.5-34.0 N (test code = MCHC) RED CELL DISTRIBUTION WIDTH 13.2 SD 11.5-14.5 N (test code = RDW) PLATELET COUNT (test code = 261 K/mm3 150-450 N PLT) MEAN PLATELET VOLUME (test code 8.30 fL 7.0-10.5 N = MPV) NEUTROPHIL % (test code = NT%) 43.0 % 40-76 N IMMATURE GRANULOCYTE % (test 0.2 % 0.0-5.0 N code = IG%) LYMPHOCYTE % (test code = LY%) 44.0 % 20.5-51.1 N MONOCYTE % (test code = MO%) 11.1 % 1.7-9.3 H EOSINOPHIL % (test code = EO%) 1.0 % 0.0-6.0 N BASOPHIL % (test code = BA%) 0.7 % 0.0-2.0 N NUCLEATED RBC % (test code = 0.0 /100WBC% 0.0-1.0 N NRBC%) NEUTROPHIL # (test code = NT#) 1.8 K/mm3 1.8-7.6 N IMMATURE GRANULOCYTE # (test 0.01 x10 3/uL 0.00-0.03 N code = IG#) LYMPHOCYTE # (test code = LY#) 1.8 K/mm3 0.6-3.2 N MONOCYTE # (test code = MO#) 0.5 K/mm3 0.3-1.1 N EOSINOPHIL # (test code = EO#) 0.0 K/mm3 0.0-0.4 N BASOPHIL # (test code = BA#) 0.0 K/mm3 0.0-0.1 N NUCLEATED RBC # (test code = 0.0 K/mm3 0.0-0.1 N NRBC#) MANUAL DIFF REQUIRED (test code NO DIFF/SCN CRITERIA = MDIFF) URINALYSIS [id number] 16:09:00 Test Item Value Reference Range Interpretation Comments UA GLUCOSE DIPSTICK (test NEGATIVE mg/dL NEG code = DGLUU) UA BILIRUBIN DIPSTICK (test NEGATIVE mg/dL NEG code = BILU) UA KETONE DIPSTICK (test NEGATIVE mg/dL NEG code = KETU) UA SPECIFIC GRAVITY (test 1.020 SG 1.005-1.030 code = SGU) UA BLOOD DIPSTICK (test NEGATIVE mg/DL NEG code = ELIJAH) UA PH DIPSTICK (test code = 6.0 pH UNITS 5.0-7.0 TEJINDER) UA PROTEIN DIPSTICK (test NEGATIVE mg/dL NEG code = PROU) UA UROBILINIOGEN DIPSTICK 0.2 mg/dL <2.0 (test code = URO) UA NITRITE DIPSTICK (test NEGATIVE SCREEN NEG code = JANESSA) UA LEUKOCYTE ESTERASE NEGATIVE Leuk/mcL NEGATIVE DIPSTICK (test code = LEUU) Urine Specimen Type: Clean CatchUR HCG [id number] 16:09:00 Test Item Value Reference Range Interpretation Comments UR HCG QUAL (test code = HCGQLU) NEGATIVE NEGATIVE Urine Specimen Type: Clean Catchrapid strep group A, [id number] 15:45:00 Test Item Value Reference Range Interpretation Comments Strep Result (test code = Strep positive Result) [facility] [id number] 16:00:33 Test Item Value Reference Range Interpretation Comments Test (test code = negative Test) [facility] + [id number] 00:00:00 Test Item Value Reference Range Interpretation Comments HPV type-detect 3.0 by next gen not detected sequencing (reflex to HPV-16 risk assessment status) (test code = HPV type-detect 3.0 by next gen sequencing (reflex to HPV-16 risk assessment status)) General categories normal [interpretation] of Cervical or vaginal smear or scraping by Cyto stain (test code = 28181-5) [facility]
[2022-12-11] MEDS ORDERED: ASPIRIN 81 MG CHEWABLE TABLET ONE (10:49)
[2022-12-11 10:50] LABS: Absolute Lymphocytes (CBC) 1.3 K/uL (0.7-4.9); Hematocrit 40.5 % (36.0-45.0); Lymphocytes % 37.7 % (15.3-44.8); MCV 88.4 fL (80-100); MPV 6.7 fL (7.6-11.3); Platelets 261 thou/uL (152-406); RBC Red Blood Cell Count 4.59 M/uL (3.86-4.86)
--- NOTE | 2022-12-11 10:51 | RAD REPORT ---
EXAM DESCRIPTION: RAD - Chest Single View - 12/11/2022 10:44 am CLINICAL HISTORY: CHEST PAIN Chest pain. COMPARISON: <Comparisons> FINDINGS: Portable technique limits examination quality. The lungs are grossly clear. The heart is normal in size. No displaced fractures. IMPRESSION: No acute intrathoracic process suspected.
[2022-12-11 10:57] LABS: Specific Gravity 1.009 (1.005-1.030); Urine Bacteria <20 /HPF (<20); Urine Bilirubin NEGATIVE (Negative); Urine Blood Negative (Negative); Urine Clarity Turbid (Clear); Urine Color Colorless (Yellow); Urine Glucose NEGATIVE (Negative); Urine Mucus Slight /HPF (None Seen); Urine Protein NEGATIVE (Negative); Urine RBC <5 /HPF (None Seen); Urine Urobilinogen Normal (Normal); Urine pH 6.5 (5.0-7.0)
--- NOTE | 2022-12-11 10:57 | RAD REPORT ---
EXAM DESCRIPTION: CTAbdomen Pelvis W Contrast - 12/11/2022 10:45 am CLINICAL HISTORY: Abdominal pain. ABD PAIN COMPARISON: <Comparisons> TECHNIQUE: Biphasic CT imaging of the abdomen and pelvis was performed with 100 ml non-ionic IV cont rast. All CT scans are performed using dose optimization technique as appropriate and may include automated exposure control or mA/KV adjustment according to patient size. FINDINGS: The lung bases are clear. The liver, spleen, pancreas, adrenal glands and kidneys are within normal limits. No bowel obstruction, free air, free fluid or abscess. The appendix is normal. No evidence of signi ficant lymphadenopathy. No suspicious bony findings. IMPRESSION: No acute intra-abdominal or pelvic finding.
[2022-12-11 11:02] LABS: Albumin 4.1 g/dL (3.4-5.0); Bilirubin Direct 0.1 mg/dL (0-0.2); Bilirubin Indirect, Calculated 0.3 mg/dL (0.2-0.8); Bilirubin Total 0.4 mg/dL (0.2-1.0); Magnesium 2.5 mg/dL (1.6-2.4); Potassium 3.7 mEq/L (3.5-5.1); Protein, Total 7.8 g/dL (6.4-8.2); Troponin High Sensitivity 4.4 pg/mL (<58.9)
--- NOTE | 2022-12-11 11:10 | ER ---
Nurse's Notes [facility] Name: Rod Harper Age: 37 yrs Sex: Female : 1985 Arrival Date: 12/11/2022 Time: 10:08 Bed 15 Private MD: Diagnosis: Chest pain, unspecified;Abdominal pain, unspecified Presentation: 12/11 10:10 Chief complaint: Patient states: Dizziness, fatigue, chest pain since last night. ld1 Coronavirus screen: At this time, the client does not indicate any symptoms associated with coronavirus-19. Ebola Screen: No symptoms or risks identified at this time. Initial Sepsis Screen: Does the patient meet any 2 criteria? No. Patient's initial sepsis screen is negative. Does the patient have a suspected source of infection? No. Patient's initial sepsis screen is negative. Risk Assessment: Do you want to hurt yourself or someone else? Patient reports no desire to harm self or others. Onset of symptoms was December 11, 2022. 10:10 Method Of Arrival: Ambulatory ld1 10:10 Acuity: PEDRO 3 ld1 Triage Assessment: 10:11 General: Appears in no apparent distress. comfortable, Behavior is calm, cooperative, ld1 appropriate for age. Pain: Complains of pain in chest Pain does not radiate. Pain currently is 0 out of 10 on a pain scale. Quality of pain is described as pressure. EENT: Reports pain in forehead. Neuro: Level of Consciousness is awake, alert, obeys commands, Oriented to person, place, time, situation, Appropriate for age. Cardiovascular: Capillary refill < 3 seconds Patient's skin is warm and dry. Respiratory: Airway is patent Respiratory effort is even, unlabored. GI: Abdomen is round non-distended. : No signs and/or symptoms were reported regarding the genitourinary system. Derm: No signs and/or symptoms reported regarding the dermatologic system. Musculoskeletal: No signs and/or symptoms reported regarding the musculoskeletal system. 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 - Social history:: Smoking status: Patient denies any tobacco usage or history of. Patient/guardian denies using alcohol. Screenin:44 [facility] ED Fall Risk Assessment (Adult) History of falling in the last 3 months, mb9 including since admission No falls in past 3 months (0 pts) Confusion or Disorientation No (0 pts) Intoxicated or Sedated No (0 pts) Impaired Gait No (0 pts) Mobility Assist Device Used No (0 pt) Altered Elimination No (0 pt) Score/Fall Risk Level 0 - 2 = Low Risk Oriented to surroundings, Maintained a safe environment, Educated pt \T\ family on fall prevention, incl call for assistance when getting out of bed. Abuse screen: Denies threats or abuse. Nutritional screening: No deficits noted. Tuberculosis screening: No symptoms or risk factors identified. Assessment: 10:43 General: Appears in no apparent distress. Behavior is calm, cooperative. Pain: mb9 Complains of pain in chest Quality of pain is described as pressure, Pain began 2-3 days ago. Neuro: Guerrero Agitation-Sedation Scale (RASS): 0 - Alert and Calm Level of Consciousness is awake, alert, obeys commands, Oriented to person, place, time, situation, Appropriate for age Reports dizziness. Cardiovascular: Heart tones S1 S2 present Patient's skin is warm and dry. Rhythm is regular. Respiratory: Airway is patent Respiratory effort is even, unlabored, Respiratory pattern is regular, symmetrical, Breath sounds are clear bilaterally. GI: Abdomen is round non-distended, Bowel sounds present X 4 quads. Abd is soft and non tender X 4 quads. : Urine is clear. Derm: Skin is pink, warm \T\ dry. Musculoskeletal: Range of motion: intact in all extremities. 11:26 Reassessment: Patient and/or family updated on plan of care and expected duration. Pain mb9 level reassessed. Patient is alert, oriented x 3, equal unlabored respirations, skin warm/dry/pink. Patient states feeling better. Patient states symptoms have improved. Vital Signs: 10:11 Pulse 65; Resp 18; Temp 98.1(O); Pulse Ox 100% on R/A; Weight 102.97 kg; Height 5 ft. 0 ld1 in. ; Pain 0/10; 10:13 BP 168 / 99; ld1 10:43 BP 160 / 89; Pulse 78; Resp 16; Pulse Ox 100% on R/A; mb9 10:11 Body Mass Index 44.33 (102.97 kg, 152.4 cm) ld1 10:11 Pain Scale: Adult ld1 ED Course: 10:09 Patient arrived in ED. im 10:10 Elfego Wilkinson MD is Attending Physician. rt 10:11 Triage completed. ld1 10:11 Arm band placed on right wrist. ld1 10:18 Gema Osullivan, RN is Primary Nurse. mb9 10:30 Inserted saline lock: 22 gauge in left antecubital area, using aseptic technique. mb9 10:30 EKG done, by ED staff, reviewed by Elfego Wilkinson MD. mb9 10:42 UAM Sent. mb9 10:42 Basic Metabolic Panel Sent. mb9 10:42 CBC with Diff Sent. mb9 10:42 LFT's Sent. mb9 10:42 Magnesium Sent. mb9 10:42 NT PRO-BNP Sent. mb9 10:42 Troponin HS Sent. mb9 10:44 Placed in gown. Bed in low position. Call light in reach. Side rails up X 1. Client mb9 placed on continuous cardiac and pulse oximetry monitoring. NIBP monitoring applied. cheesemaker on. 10:45 No provider procedures requiring assistance completed. Patient maintains SpO2 mb9 saturation greater than 95% on room air. 10:46 XRAY Chest (1 view) In Process Unspecified. EDMS 10:47 CT Abd/Pelvis - IV Contrast Only In Process Unspecified. EDMS 11:10 Maikol Edwards MD is Referral Physician. rt 11:26 IV discontinued, intact, bleeding controlled, No redness/swelling at site. Pressure mb9 dressing applied. Administered Medications: 10:42 Drug: Aspirin PO Chewable Tablet 324 mg PO once; 81 mg tablets x 4 Route: PO; mb9 11:11 Follow up: Response: No adverse reaction mb9 Medication: 10:45 VIS not applicable for this client. mb9 Outcome: 11:10 Discharge ordered by . rt 11:26 Discharged to home ambulatory, mb9 11:26 Condition: stable 11:26 Discharge instructions given to patient, Instructed on discharge instructions, follow up and referral plans. Demonstrated understanding of instructions, follow-up care, 11:28 Patient left the ED. mb9 Signatures: Dispatcher [employer] Shira Duggan, RN RN ld1 Gema Osullivan, RN RN mb9 Elfego Wilkinson MD MD rt Christie Sosa
--- NOTE | 2022-12-11 11:11 | EDPHYS ---
Physician Documentation [facility] Name: Rod Harper Age: 37 yrs Sex: Female : 1985 Arrival Date: 12/11/2022 Time: 10:08 Bed 15 Private MD: ED Physician Elfego Wilkinson HPI: 12/11 10:29 This 37 yrs old Black Female presents to ER via Ambulatory with complaints of Chest rt Pain. 10:29 To the ED with a constant chest pressure starting yesterday morning. She denies any rt aggravating or relieving factors. Patient denies any shortness of breath, nausea. She states that she is fatigued. Patient also states that she has had a left lower quadrant pain for over 1 month. Denies other acute complaints at this time, symptoms are moderate in severity, no other aggravating relieving factors.. 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 - Social history:: Smoking status: Patient denies any tobacco usage or history of. Patient/guardian denies using alcohol. ROS: 10:31 Respiratory: Negative for shortness of breath, cough, wheezing, and pleuritic chest rt pain, MS/Extremity: Negative for injury and deformity, Skin: Negative for injury, rash, and discoloration, Neuro: Negative for headache, weakness, numbness, tingling, and seizure, Psych: Negative for depression, anxiety, suicide ideation, homicidal ideation, and hallucinations, 10:31 Constitutional: Positive for fatigue, Negative for fever, 10:31 Cardiovascular: Positive for chest pain, Negative for edema, 10:31 Abdomen/GI: Positive for abdominal pain, Negative for nausea and vomiting, Exam: 10:31 Constitutional: This is a well developed, well nourished patient who is awake, alert, rt and in no acute distress. Head/Face: Normocephalic, atraumatic. Chest/axilla: Normal chest wall appearance and motion. Nontender with no deformity. No lesions are appreciated. Cardiovascular: Regular rate and rhythm with a normal S1 and S2. No gallops, murmurs, or rubs. Normal PMI, no JVD. No pulse deficits. Respiratory: Lungs have equal breath sounds bilaterally, clear to auscultation and percussion. No rales, rhonchi or wheezes noted. No increased work of breathing, no retractions or nasal flaring. Skin: Warm, dry with normal turgor. Normal color with no rashes, no lesions, and no evidence of cellulitis. MS/ Extremity: Pulses equal, no cyanosis. Neurovascular intact. Full, normal range of motion. Neuro: Awake and alert, GCS 15, oriented to person, place, time, and situation. Cranial nerves II-XII grossly intact. Motor strength 5/5 in all extremities. Sensory grossly intact. Cerebellar exam normal. Normal gait. Psych: Awake, alert, with orientation to person, place and time. Behavior, mood, and affect are within normal limits. 10:31 ECG was reviewed by the Attending Physician. 10:31 Abdomen/GI: Mild tenderness to the left lower quadrant without rebound, guarding, distention, Vital Signs: 10:11 Pulse 65; Resp 18; Temp 98.1(O); Pulse Ox 100% on R/A; Weight 102.97 kg; Height 5 ft. 0 ld1 in. ; Pain 0/10; 10:13 BP 168 / 99; ld1 10:43 BP 160 / 89; Pulse 78; Resp 16; Pulse Ox 100% on R/A; mb9 10:11 Body Mass Index 44.33 (102.97 kg, 152.4 cm) ld1 10:11 Pain Scale: Adult ld1 MDM: 10:22 Patient medically screened. rt 11:12 Differential diagnosis: abnormal EKG, acute myocardial infarction, chest wall pain, rt pneumonia. HEART Score: History: Slightly Suspicious (0), ECG: Normal (0), Age: < or = 45 years (0), Risk Factors: 1 or 2 risk factors (1), Troponin: < or = 1 x Normal Limit (0), Total Score = 1. Data reviewed: vital signs, nurses notes, lab test result(s), EKG, radiologic studies. Consideration of Admission/Observation Given chronicity of symptoms, 1 set of enzymes is sufficient to rule out acute coronary syndrome, patient is strongly desirous of discharge, believe that she is appropriate for outpatient follow-up.. I considered the following discharge prescriptions or medication management in the emergency department Medications were administered in the Emergency Department. See MAR. Independent interpretation of the following test(s) in the Emergency Department X-Ray: My interpretation is No consolidation syndrome interpretation of the chest x-ray images. Test considered but Not performed: CT: PE RC negative, low suspicion for pulmonary embolus, CT angiogram not indicated. Counseling: I had a detailed discussion with the patient and/or guardian regarding the historical points, exam findings, and any diagnostic results supporting the discharge/admit diagnosis, lab results, radiology results, the need for outpatient follow up, to return to the emergency department if symptoms worsen or persist or if there are any questions or concerns that arise at home. 12/11 10:28 Order name: Basic Metabolic Panel; Complete Time: 11:03 rt 12/11 10:28 Order name: CBC with Diff; Complete Time: rt 12/11 10:28 Order name: LFT's; Complete Time: 11: rt 12/11 10:28 Order name: Magnesium; Complete Time: 11: rt 12/11 10:28 Order name: NT PRO-BNP; Complete Time: 11: rt 12/11 10:28 Order name: Troponin HS; Complete Time: 11: rt 12/11 10:28 Order name: Lipase; Complete Time: 11: rt 12/11 10:31 Order name: UAM; Complete Time: 10: rt 12/11 10:28 Order name: XRAY Chest (1 view); Complete Time: 10:59 rt 12/11 10:28 Order name: CT Abd/Pelvis - IV Contrast Only; Complete Time: 10:59 rt 12/11 10:28 Order name: EKG; Complete Time: 10: rt 12/11 10:28 Order name: Cardiac monitoring; Complete Time: 10:32 rt 12/11 10:28 Order name: EKG - Nurse/Tech; Complete Time: 10: rt 12/11 10:28 Order name: IV Saline Lock; Complete Time: 10:34 rt 12/11 10:28 Order name: Labs collected and sent; Complete Time: 10:34 rt 12/11 10:28 Order name: O2 Per Protocol; Complete Time: 10:32 rt 12/11 10:28 Order name: O2 Sat Monitoring; Complete Time: 10:32 rt EC:31 Rate is 64 beats/min. Rhythm is regular, Normal Sinus Rhythm with No ectopy. QRS [place] rt is Normal. NV interval is normal. QRS interval is normal. QT interval is normal. No Q waves. T waves are Normal. No ST changes noted. Interpreted by me. Administered Medications: 10:42 Drug: Aspirin PO Chewable Tablet 324 mg PO once; 81 mg tablets x 4 Route: PO; mb9 11:11 Follow up: Response: No adverse reaction mb9 Disposition Summary: 12/11/22 11:10 Discharge Ordered Notes: Location: Home rt Problem: new rt Symptoms: are unchanged rt Condition: Stable rt Diagnosis - Chest pain, unspecified rt - Abdominal pain, unspecified rt Followup: rt - With: Maikol Edwards MD - When: 5 - 6 days - Reason: Discharge Instructions: - Discharge Summary Sheet rt - Abdominal Pain, Adult rt - Nonspecific Chest Pain, Adult rt Forms: - Work release form mb9 - Medication Reconciliation Form rt - Thank You Letter rt - Antibiotic Education rt - Prescription Opioid Use rt - Patient Portal Instructions rt - Leadership Thank You Letter rt Signatures: Dispatcher [employer] EDShira Burrows, RN RN ld1 Gema Osullivan RN RN mb9 Elfego Wilkinson MD MD rt
[2022-12-11 11:53] VITALS: TEMP 98.1; O2SAT 100
[2022-12-11 11:55] VITALS: BP 160/89
--- NOTE | 2022-12-12 17:15 | EKG ---
Test Date: 2022-12-11 Test Time: 10:19:02 Land Inspector: ROBERT MEASUREMENT RESULTS: Intervals: Rate: 64 WA: 174 QRSD: 96 QT: 424 QTc: 437 [place]: P: 55 WA: 174 QRS: 59 T: 44 INTERPRETIVE STATEMENTS: Normal sinus rhythm Normal ECG No previous ECG available for comparison Electronically Signed On 12-12-22 17:11:30 CDT by Maikol Edwards
== END 2022-12-11 11:28 | disposition home or self-care (01) ==
LOC: ER 10:08
DX: R07.89 Other chest pain (principal); R10.32 Left lower quadrant pain; I10 Essential (primary) hypertension
CPT/HCPCS: 93005; 85025; 81001; 80048; 36415; 83735; 80076; 84484; 83690; 83880; 74177; 71045; 99285; Q9967

== ENCOUNTER → 2023-05-17 | Emergency (ER) | payer OTHER ==
[~2023-05-17] MED LIST: IBUPROFEN 200 MG TAB PO ONE; IBUPROFEN 400 MG TAB ONE
[2023-05-17 06:09] LABS: Specific Gravity 1.027 (1.005-1.030)
[2023-05-17 06:14] LABS: Specific Gravity 1.027 (1.005-1.030); Urine Bacteria None Seen /HPF (<20); Urine Bilirubin NEGATIVE (Negative); Urine Blood Negative (Negative); Urine Clarity Clear (Clear); Urine Color Light-Yellow (Yellow); Urine Glucose NEGATIVE (Negative); Urine Protein NEGATIVE (Negative); Urine RBC <5 /HPF (None Seen); Urine Urobilinogen Normal (Normal)
--- NOTE | 2023-05-17 07:04 | ER ---
Nurse's Notes [facility] Name: Rod Harper Age: 37 yrs Sex: Female : 1985 Arrival Date: 05/17/2023 Time: 05:22 Bed 20 Private MD: Diagnosis: Influenza due to identified novel influenza A virus Presentation: 05/17 05:39 Chief complaint: Patient states: cough, congestion, headache, sore throat, body aches lg3 X2 days. denies fever. Coronavirus screen: Client denies travel out of the [place] in the last 14 days. Client presents with at least one sign or symptom that may indicate coronavirus-19. Standard/surgical mask placed on the client. Ebola Screen: No symptoms or risks identified at this time. Initial Sepsis Screen: Does the patient meet any 2 criteria? No. Patient's initial sepsis screen is negative. Does the patient have a suspected source of infection? No. Patient's initial sepsis screen is negative. Risk Assessment: Do you want to hurt yourself or someone else? Patient reports no desire to harm self or others. Onset of symptoms was May 15, 2023. 05:39 Method Of Arrival: Ambulatory lg3 05:39 Acuity: PEDRO 4 lg3 Triage Assessment: 05:41 General: Appears in no apparent distress. comfortable, Behavior is calm, cooperative. lg3 Pain: Complains of pain in head Pain does not radiate. Pain currently is 5 out of 10 on a pain scale. EENT: No deficits noted. Reports nasal congestion. Neuro: No deficits noted. Guerrero Agitation-Sedation Scale (RASS): 0 - Alert and Calm Level of Consciousness is awake, alert, obeys commands, Oriented to person, place, time, situation, Reports headache. Cardiovascular: No deficits noted. Denies chest pain, shortness of breath, Capillary refill < 3 seconds Clubbing of nail beds is absent JVD is absent Patient's skin is warm and dry. Respiratory: No deficits noted. Reports cough that is dry, persistent Airway is patent Respiratory effort is even, unlabored, Respiratory pattern is regular, symmetrical, Breath sounds are clear bilaterally. GI: No deficits noted. No signs and/or symptoms were reported involving the gastrointestinal system. Abdomen is round non-distended, obese. : No deficits noted. No signs and/or symptoms were reported regarding the genitourinary system. Derm: No deficits noted. No signs and/or symptoms reported regarding the dermatologic system. Skin is intact, is healthy with good turgor, Skin is dry, Skin is normal, Skin temperature is warm. Musculoskeletal: No deficits noted. No signs and/or symptoms reported regarding the musculoskeletal system. Circulation, motion, and sensation intact. Range of motion: intact in all extremities. 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 - Social history:: Smoking status: Patient denies any tobacco usage or history of. Patient/guardian denies using alcohol, street drugs. - Family history:: not pertinent. Screenin:40 [facility] ED Fall Risk Assessment (Adult) History of falling in the last 3 months, tm6 including since admission No falls in past 3 months (0 pts) Confusion or Disorientation No (0 pts) Intoxicated or Sedated No (0 pts) Impaired Gait No (0 pts) Mobility Assist Device Used No (0 pt) Altered Elimination No (0 pt) Score/Fall Risk Level 0 - 2 = Low Risk Oriented to surroundings, Maintained a safe environment. Abuse screen: Denies threats or abuse. Denies injuries from another. Nutritional screening: No deficits noted. Tuberculosis screening: No symptoms or risk factors identified. Assessment: 05:40 General: Appears in no apparent distress. Behavior is calm, cooperative. Neuro: Level tm6 of Consciousness is awake, alert, obeys commands, Oriented to person, place, time, situation. Cardiovascular: Capillary refill < 3 seconds Patient's skin is warm and dry. Respiratory: Reports cough that is non-productive, Airway is patent Respiratory effort is even, unlabored, Respiratory pattern is regular, symmetrical. GI: Abdomen is flat, non-distended. : No signs and/or symptoms were reported regarding the genitourinary system. : Reports burning with urination. Derm: No signs and/or symptoms reported regarding the dermatologic system. Musculoskeletal: No signs and/or symptoms reported regarding the musculoskeletal system. 05:47 Pain: Complains of pain in right lower quadrant and left lower quadrant Pain currently tm6 is 8 out of 10 on a pain scale. Quality of pain is described as crampy. EENT: No signs and/or symptoms were reported regarding the EENT system. Vital Signs: 05:39 BP 149 / 103; Pulse 76; Resp 17 S; Temp 97.7(TE); Pulse Ox 99% on R/A; Weight 104.33 kg lg3 (R); Height 5 ft. 5 in. (R); 06:38 BP 148 / 110; Pulse 79; Resp 20; Temp 97.6(O); Pulse Ox 100% on R/A; tm6 05:39 Body Mass Index 38.27 (104.33 kg, 165.1 cm) lg3 ED Course: 05:28 Patient arrived in ED. jj6 05:29 Elfego Wilkinson MD is Attending Physician. rt 05:39 Tammie Hoff, MILADIS is Primary Nurse. tm6 05:40 Patient has correct armband on for positive identification. Bed in low position. Call tm6 light in reach. Provided Education on: plan of care. Pulse ox on. NIBP on. Door closed. Noise minimized. Warm blanket given. 05:41 Triage completed. lg3 05:41 Arm band placed on right wrist. lg3 05:47 Influenza Screen (a \T\ B) Sent. lg3 07:13 No provider procedures requiring assistance completed. Patient did not have IV access kc6 during this emergency room visit. Administered Medications: 06:01 Drug: Ibuprofen PO 600 mg PO once Route: PO; tm6 Medication: 05:40 VIS not applicable for this client. tm6 Outcome: 07:03 Discharge ordered by . rt 07:13 Discharged to home ambulatory, kc6 07:13 Condition: good 07:13 Discharge instructions given to patient, Instructed on discharge instructions, follow up and referral plans. Demonstrated understanding of instructions, follow-up care, 07:13 Patient left the ED. kc6 Signatures: Mimi Horton RN RN lg3 Asia Higgins jj6 Nolvia Raygoza RN RN kc6 Elfego Wilkinson MD MD rt Luis Eduardo, Tawney, RN RN tm6
--- NOTE | 2023-05-17 07:04 | EDPHYS ---
Physician Documentation [facility] Name: Rod Harper Age: 37 yrs Sex: Female : 1985 Arrival Date: 05/17/2023 Time: 05:22 Bed 20 Private MD: ED Physician Elfego Wilkinson HPI: 05/17 06:03 This 37 yrs old Black Female presents to ER via Ambulatory with complaints of Flu rt Symptoms. 06:03 Patient presents to the ED with reported flulike symptoms. The patient had a negative rt home COVID test. She reports cough, congestion, sore throat. She also reports mild lower abdominal pain and increased urinary frequency. Denies other acute complaints at this time, symptoms are mild in severity, no other aggravating or elevating factors.. 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 - Social history:: Smoking status: Patient denies any tobacco usage or history of. Patient/guardian denies using alcohol, street drugs. - Family history:: not pertinent. ROS: 06:03 MS/Extremity: Negative for injury and deformity, Skin: Negative for injury, rash, and rt discoloration, 06:03 ENT: Positive for rhinorrhea, sore throat, 06:03 Abdomen/GI: Positive for nausea, diarrhea, Exam: 06:03 Constitutional: This is a well developed, well nourished patient who is awake, alert, rt and in no acute distress. Head/Face: Normocephalic, atraumatic. Chest/axilla: Normal chest wall appearance and motion. Nontender with no deformity. No lesions are appreciated. Cardiovascular: Regular rate and rhythm with a normal S1 and S2. No gallops, murmurs, or rubs. Normal PMI, no JVD. No pulse deficits. Respiratory: Lungs have equal breath sounds bilaterally, clear to auscultation and percussion. No rales, rhonchi or wheezes noted. No increased work of breathing, no retractions or nasal flaring. Abdomen/GI: Soft, non-tender, with normal bowel sounds. No distension or tympany. No guarding or rebound. No evidence of tenderness throughout. Skin: Warm, dry with normal turgor. Normal color with no rashes, no lesions, and no evidence of cellulitis. MS/ Extremity: Pulses equal, no cyanosis. Neurovascular intact. Full, normal range of motion. Neuro: Awake and alert, GCS 15, oriented to person, place, time, and situation. Cranial nerves II-XII grossly intact. Motor strength 5/5 in all extremities. Sensory grossly intact. Cerebellar exam normal. Normal gait. Vital Signs: 05:39 BP 149 / 103; Pulse 76; Resp 17 S; Temp 97.7(TE); Pulse Ox 99% on R/A; Weight 104.33 kg lg3 (R); Height 5 ft. 5 in. (R); 06:38 BP 148 / 110; Pulse 79; Resp 20; Temp 97.6(O); Pulse Ox 100% on R/A; tm6 05:39 Body Mass Index 38.27 (104.33 kg, 165.1 cm) lg3 MDM: 05:39 Patient medically screened. rt 07:10 Differential Diagnosis Influenza, URI, UTI. Data reviewed: vital signs, nurses notes, rt lab test result(s). Test considered but Not performed: X-ray: Clear breath sounds, normal abdominal examination, CT scan not indicated, x-ray not indicated. Care significantly affected by the following chronic conditions: Hypertension. Counseling: I had a detailed discussion with the patient and/or guardian regarding the historical points, exam findings, and any diagnostic results supporting the discharge/admit diagnosis, lab results, the need for outpatient follow up, to return to the emergency department if symptoms worsen or persist or if there are any questions or concerns that arise at home. 05/17 05:46 Order name: Influenza Screen (a \T\ B); Complete Time: 06:50 rt 05/17 05:46 Order name: UAM; Complete Time: 06:44 rt 05/17 05:46 Order name: Test, Urine; Complete Time: 06:44 rt Administered Medications: 06:01 Drug: Ibuprofen PO 600 mg PO once Route: PO; tm6 Disposition Summary: 05/17/23 07:03 Discharge Ordered Notes: Location: Home rt Problem: new rt Symptoms: have improved rt Condition: Stable rt Diagnosis - Influenza due to identified novel influenza A virus rt Followup: rt - With: Private Physician - When: 5 - 6 days - Reason: Discharge Instructions: - Discharge Summary Sheet rt - Influenza, Adult, [id number] rt Forms: - Medication Reconciliation Form rt - Thank You Letter rt - Antibiotic Education rt - Prescription Opioid Use rt - Patient Portal Instructions rt - Leadership Thank You Letter rt Signatures: Dispatcher [employer] Mimi Rogers RN RN lg3 Elfego Wilkinson MD MD rt Tammie Hoff RN RN tm6
[2023-05-17 07:26] VITALS: BP 148/110; TEMP 97.6; O2SAT 100
== END ==
LOC: ER 05:22
DX: J10.1 Influenza due to other identified influenza virus with other respiratory manifestations (principal); I10 Essential (primary) hypertension
CPT/HCPCS: 81001; 81025; 87804; 99284

== ENCOUNTER 2024-07-17 20:04 | Emergency (ER) | payer OTHER ==
[2024-07-17 21:29] LABS: Absolute Lymphocytes (CBC) 2.2 K/uL (0.7-4.9); Absolute Monocytes 0.6 K/uL (0.1-1.3); Absolute Neutrophil 3.4 K/uL (1.8-8.0); Basophils % 0.7 % (0-1.3); Eosinophils % 0.4 % (0-4.4); Hematocrit 39.5 % (36.0-45.0); Hemoglobin 13.2 g/dL (12.0-15.0); Lymphocytes % 35.6 % (15.3-44.8); MCH 29.5 pg (27.0-35.0); MCHC 33.5 g/dL (32.0-36.0); Monocytes % 9.1 % (3.3-12.3); Neutrophils % 54.2 % (41.7-73.7); Nucleated Red Blood Cells % 0.2 % (0-0); Platelets 274 thou/uL (152-406); RBC Red Blood Cell Count 4.48 M/uL (3.86-4.86); Red Cell Distribution Width 13.5 % (12.1-15.2)
--- NOTE | 2024-07-17 21:40 | RAD REPORT ---
EXAMINATION: TWO VIEW CHEST XR CLINICAL INDICATION: CHEST PAIN TECHNIQUE: 2 views of the chest was performed. COMPARISON: 12/11/2022 FINDINGS: Mild bilateral pulmonary opacities are seen which may represent pulmonary edema or pneumonia. The hea rt is upper limit of normal in size. No displaced fractures evident.
--- NOTE | 2024-07-17 21:50 | RAD REPORT ---
EXAMINATION: US BILATERAL LOWER EXTREMITY VENOUS DOPPLER CLINICAL INDICATION: SWELLING TECHNIQUE: Complete bilateral duplex sonography of the BILATERAL lower extremity veins was performed. The examination included compression for vein patency, color Doppler imaging and flow augmentation in response to distal compression of the distal external iliac, common femoral, femoral, popliteal, t ibial, and great and small saphenous veins. COMPARISON: No prior exam. FINDINGS: Duplex sonography testing of the veins of the BILATERAL lower extremity was performed. Color flow paty ging shows all veins to be compressible with [id number] color filling. Pulsatile and phasic flow is present within all lower extremity deep and superficial veins examined. IMPRESSION: There is no deep vein or superficial vein thrombosis.
[2024-07-17 21:52] LABS: Anion Gap 8.4 mEq/L (5.0-15.0); Magnesium 2.1 mg/dL (1.6-2.4); Potassium 3.4 mEq/L (3.5-5.1); Troponin High Sensitivity 3.1 pg/mL (<58.9)
[2024-07-17] MEDS ORDERED: IBUPROFEN 400 MG TAB ONE (22:10)
--- NOTE | 2024-07-17 22:29 | RAD REPORT ---
EXAMINATION: CTA CHEST PE CLINICAL INDICATION: Chest pain;SOB TECHNIQUE: This examination was performed according to an angiographic protocol with 3D post-processi ng. This involves 3D reconstructions, MIPs, volume rendered images and/or shaded surface rendering. One or more of the following dose reduction techniques were used: Automated exposure control, adjustm ent of the mA and/or kV according to patient size, and/or iterative reconstruction. Unless otherwise specified, incidental findings do not require dedicated imaging follow-up. COMPARISON: No prior exam. FINDINGS: PULMONARY ARTERIES: Normal caliber. No evidence of pulmonary emboli to the subsegmental level. THORACIC AORTA: Normal caliber and configuration. LUNGS: No evidence of airspace or interstitial process. No nodules. PLEURA: No pleural effusion. No pneumothorax. MEDIASTINUM AND LYMPH NODES: No mediastinal mass or fluid collection. Normal size mediastinal, hilar, and axillary lymph nodes. OSSEOUS STRUCTURES AND CHEST WALL: Intact. UPPER ABDOMEN: No significant abnormalities. IMPRESSION: No evidence of pulmonary emboli to the subsegmental level.
--- NOTE | 2024-07-17 22:35 | ER ---
Nurse's Notes [facility] Name: Rod Harper Age: 38 yrs Sex: Female : 1985 Arrival Date: 07/17/2024 Time: 20:04 Bed 8 Private MD: Diagnosis: Pneumonia, unspecified organism Presentation: 07/17 20:39 Chief complaint: Patient states: L sided chest pain, neck pain, and swelling starting al5 Thursday. states it is a pressure sensation. Coronavirus screen: At this time, the client does not indicate any symptoms associated with coronavirus-19. Ebola Screen: No symptoms or risks identified at this time. Initial Sepsis Screen: Does the patient meet any 2 criteria? No. Patient's initial sepsis screen is negative. Does the patient have a suspected source of infection? No. Patient's initial sepsis screen is negative. Risk Assessment: Do you want to hurt yourself or someone else? Patient reports no desire to harm self or others. Onset of symptoms was July 11, 2024. 20:39 Method Of Arrival: Ambulatory al5 20:39 Acuity: PEDRO 2 al5 Triage Assessment: 20:40 General: Appears in no apparent distress. comfortable, Behavior is calm, cooperative. al5 Pain: Complains of pain in anterior aspect of left upper chest. Pain: Pain currently is 0 out of 10 on a pain scale. Quality of pain is described as pressure. EENT: No signs and/or symptoms were reported regarding the EENT system. Neuro: Level of Consciousness is awake, alert, obeys commands, Oriented to person, place, time, situation. Cardiovascular: Capillary refill < 3 seconds Patient's skin is warm and dry. Respiratory: Airway is patent Respiratory effort is even, unlabored, Respiratory pattern is regular, symmetrical. GI: No signs and/or symptoms were reported involving the gastrointestinal system. : No signs and/or symptoms were reported regarding the genitourinary system. Derm: Skin is intact, is healthy with good turgor, Skin is pink, warm \T\ dry. normal. Musculoskeletal: No signs and/or symptoms reported regarding the musculoskeletal system. 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 - Infectious Disease History:: Denies. - Social history:: Smoking status: Patient denies any tobacco usage or history of. Screenin:42 [facility] ED Fall Risk Assessment (Adult) History of falling in the last 3 months, al5 including since admission No falls in past 3 months (0 pts) Confusion or Disorientation No (0 pts) Intoxicated or Sedated No (0 pts) Impaired Gait No (0 pts) Mobility Assist Device Used No (0 pt) Altered Elimination No (0 pt) Score/Fall Risk Level 0 - 2 = Low Risk Oriented to surroundings, Maintained a safe environment, Hourly rounding (assess needs \T\ fall precautionary measures) done. Abuse screen: Denies threats or abuse. Denies injuries from another. Nutritional screening: No deficits noted. Tuberculosis screening: No symptoms or risk factors identified. Assessment: 20:42 Reassessment: see triage assessment. al5 21:19 Reassessment: Patient appears in no apparent distress at this time. Patient and/or bm8 family updated on plan of care and expected duration. Pain level reassessed. Patient is alert, oriented x 3, equal unlabored respirations, skin warm/dry/pink. General: Appears in no apparent distress. comfortable, Behavior is calm, cooperative, appropriate for age. Pain: Complains of pain in right leg and left leg and chest and anterior aspect of left upper chest, left posterior neck and left arm Pain does not radiate. Pain currently is 4 out of 10 on a pain scale. Pain began gradually. Neuro: No deficits noted. Level of Consciousness is awake, alert, obeys commands, Oriented to person, place, time, situation, Appropriate for age. Cardiovascular: Reports chest pain, Heart tones S1 S2 present Edema is 1+ to left midcalf, left ankle, left foot and left toes Rhythm is sinus rhythm. Respiratory: Airway is patent Respiratory effort is even, unlabored, Respiratory pattern is regular, symmetrical, Breath sounds are clear bilaterally. GI: No signs and/or symptoms were reported involving the gastrointestinal system. Bowel sounds present X 4 quads. Abd is soft and non tender. GI: No signs and/or symptoms were reported involving the gastrointestinal system. : No signs and/or symptoms were reported regarding the genitourinary system. EENT: No signs and/or symptoms were reported regarding the EENT system. Derm: No signs and/or symptoms reported regarding the dermatologic system. Musculoskeletal: Circulation, motion, and sensation intact. Capillary refill < 3 seconds, Range of motion: intact in all extremities, Reports a shooting pain that causes tingling down the left arm. that comes and goes. 22:28 Reassessment: Patient appears in no apparent distress at this time. No changes from bm8 previously documented assessment. Patient and/or family updated on plan of care and expected duration. Pain level reassessed. Patient is alert, oriented x 3, equal unlabored respirations, skin warm/dry/pink. 23:01 Reassessment: Patient appears in no apparent distress at this time. Patient and/or bm8 family updated on plan of care and expected duration. Pain level reassessed. Patient is alert, oriented x 3, equal unlabored respirations, skin warm/dry/pink. Patient denies pain at this time. Patient states feeling better. Patient states symptoms have improved. Vital Signs: 20:39 BP 158 / 105; Pulse 80; Resp 16; Temp 97.7; Pulse Ox 98% on R/A; Weight 99.79 kg; al5 Height 5 ft. 5 in. ; Pain 0/10; 21:19 BP 145 / 95; Pulse 75; Resp 18; Temp 97.7; Pulse Ox 97% ; Pain 4/10; bm8 22:28 BP 146 / 94; Pulse 74; Resp 18; Temp 97.7; Pulse Ox 98% ; Pain 2/10; bm8 23:01 BP 145 / 92; Pulse 73; Resp 17; Temp 97.9; Pulse Ox 100% ; Pain 0/10; bm8 20:39 Body Mass Index 36.61 (99.79 kg, 165.1 cm) al5 20:39 Pain Scale: Adult al5 21:19 Pain Scale: Adult bm8 22:28 Pain Scale: Adult bm8 23:01 Pain Scale: Adult bm8 Mcbrides Coma Score: 21:19 Eye Response: spontaneous(4). Motor Response: obeys commands(6). Verbal Response: bm8 oriented(5). Total: 15. 22:28 Eye Response: spontaneous(4). Motor Response: obeys commands(6). Verbal Response: bm8 oriented(5). Total: 15. 23:01 Eye Response: spontaneous(4). Motor Response: obeys commands(6). Verbal Response: bm8 oriented(5). Total: 15. ED Course: 20:10 Patient arrived in ED. gm2 20:23 [facility]andy Starr [facility]-C [facility]. dr5 20:23 Elfego Wilkinson MD is Attending Physician. dr5 20:40 Triage completed. al5 20:40 Arm band placed on right wrist. Patient placed in waiting room, in view of staff al5 members, Patient notified of wait time. 20:42 Patient has correct armband on for positive identification. Provided Education on: al5 notification of wait time. 20:42 No provider procedures requiring assistance completed. Patient maintains SpO2 al5 saturation greater than 95% on room air. 21:19 Client placed on continuous cardiac and pulse oximetry monitoring. NIBP monitoring bm8 applied. radiation monitor on. Pulse ox on. NIBP on. Door closed. Warm blanket given. Pillow given. Verbal reassurance given. Head of bed elevated. 21:19 Initial lab(s) drawn, by me, sent to lab. EKG done, by ED staff, reviewed by Dandy PEUGERO. Inserted saline lock: 20 gauge in right antecubital area, using aseptic technique. Blood collected. Flushed with 10 mL NS. 21:24 Chest Pa And Lat (2 Views) XRAY In Process Unspecified. EDMS 21:24 Deonte Moran, RN is Primary Nurse. bm8 21:46 Extrem Venous W Compression Scott US In Process Unspecified. EDMS 22:18 CT Chest For PE Angio In Process Unspecified. EDMS 23:01 IV discontinued, intact, bleeding controlled, No redness/swelling at site. Pressure bm8 dressing applied. Administered Medications: 22:18 Drug: Ibuprofen PO 800 mg PO once Route: PO; bm8 23:02 Follow up: Response: No adverse reaction bm8 23:01 Drug: Amoxicillin-Clavulanate PO 875 mg PO once Route: PO; bm8 23:02 Follow up: Response: No adverse reaction bm8 23:01 Drug: AZITHromycin PO 500 mg PO once Route: PO; bm8 23:02 Follow up: Response: No adverse reaction bm8 Medication: 20:42 VIS not applicable for this client. al5 Outcome: 22:35 Discharge ordered by . alia 23:01 Discharged to home ambulatory, with family, bm8 23:01 Condition: stable 23:01 Discharge instructions given to patient, family, Instructed on discharge instructions, follow up and referral plans. no drinking with medication, no driving heavy equipment, medication usage, safety practices, Demonstrated understanding of instructions, follow-up care, medications, Prescriptions given X 4, 23:03 Patient left the ED. bm8 Signatures: Dispatcher [employer] EDMS Nicole Jernigan 2 Deonte Moran, RN RN bm8 Fabi Vela RN RN al5 Dandy Starr, APPLICATION INTEGRATION SPECIALIST-C APPLICATION INTEGRATION SPECIALIST-Cdr5 Corrections: (The following items were deleted from the chart) 21:24 21:19 Pulse 75bpm; Resp 18bpm; Pulse Ox 97%; Temp 97.7F; Pain 4/10, Adult; bm8 bm8
--- NOTE | 2024-07-17 22:35 | EDPHYS ---
Physician Documentation [facility] Name: Rod Harper Age: 38 yrs Sex: Female : 1985 Arrival Date: 07/17/2024 Time: 20:04 Bed 8 Private MD: ED Physician Elfego Wilkinson HPI: 07/17 20:57 This 38 yrs old Black Female presents to ER via Ambulatory with complaints of Chest dr5 Pain, Leg Swelling, Neck Problem. 20:57 Onset: The symptoms/episode began/occurred 1 week(s) ago. 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 Patient also reports shortness of breath with ambulation that is worsened over the past week.. REGISTERED NURSE: 20:40 LMP N/A - Hysterectomy, Not al5 Historical: - Allergies: 20:40 No Known Allergies; al5 - Home Meds: 20:40 amlodipine 5 mg tablet daily [Active]; al5 - PMHx: 20:40 Hypertensive disorder; al5 - PSHx: 20:40 Total abdominal hysterectomy; al5 - Immunization history:: Adult Immunizations up to date. - Infectious Disease History:: Denies. - Social history:: Smoking status: Patient denies any tobacco usage or history of. ROS: 20:58 Constitutional: as per hpi dr5 Exam: 20:58 Constitutional: This is a well developed, well nourished patient who is awake, alert, dr5 and in no acute distress. Head/Face: Normocephalic, atraumatic. ENT: Nares patent. No nasal discharge, no septal abnormalities noted. Tympanic membranes are normal and external auditory canals are clear. Oropharynx with no redness, swelling, or masses, exudates, or evidence of obstruction, uvula midline. Mucous membranes moist. Neck: Trachea midline, no thyromegaly or masses palpated, and no cervical lymphadenopathy. Supple, full range of motion without nuchal rigidity, or vertebral point tenderness. No Meningismus. Chest/axilla: Normal chest wall appearance and motion. Nontender with no deformity. No lesions are appreciated. Cardiovascular: Regular rate and rhythm with a normal S1 and S2. Normal PMI, no JVD. No pulse deficits. Respiratory: Lungs have equal breath sounds bilaterally, clear to auscultation. No rales, rhonchi or wheezes noted. No increased work of breathing, no retractions or nasal flaring. Back: No spinal tenderness. No costovertebral tenderness. Full range of motion. Skin: Warm, dry with normal turgor. Normal color with no rashes, no lesions, and no evidence of cellulitis. 20:58 Musculoskeletal/extremity: Extremities: noted in the left leg: swelling, tenderness, noted in the right leg: swelling, Vital Signs: 20:39 BP 158 / 105; Pulse 80; Resp 16; Temp 97.7; Pulse Ox 98% on R/A; Weight 99.79 kg; al5 Height 5 ft. 5 in. ; Pain 0/10; 21:19 BP 145 / 95; Pulse 75; Resp 18; Temp 97.7; Pulse Ox 97% ; Pain 4/10; bm8 22:28 BP 146 / 94; Pulse 74; Resp 18; Temp 97.7; Pulse Ox 98% ; Pain 2/10; bm8 23:01 BP 145 / 92; Pulse 73; Resp 17; Temp 97.9; Pulse Ox 100% ; Pain 0/10; bm8 20:39 Body Mass Index 36.61 (99.79 kg, 165.1 cm) al5 20:39 Pain Scale: Adult al5 21:19 Pain Scale: Adult bm8 22:28 Pain Scale: Adult bm8 23:01 Pain Scale: Adult bm8 [place] Coma Score: 21:19 Eye Response: spontaneous(4). Motor Response: obeys commands(6). Verbal Response: bm8 oriented(5). Total: 15. 22:28 Eye Response: spontaneous(4). Motor Response: obeys commands(6). Verbal Response: bm8 oriented(5). Total: 15. 23:01 Eye Response: spontaneous(4). Motor Response: obeys commands(6). Verbal Response: bm8 oriented(5). Total: 15. MDM: 20:24 Medical Screening Exam initiated dr5 07/18 00:14 Differential diagnosis: viral Infection, bacterial infection, PE, DVT, PNA, CHF, dr5 NSTEMI. Data reviewed: vital signs, nurses notes, lab test result(s), radiologic studies, CT scan, ultrasound. I considered the following discharge prescriptions or medication management in the emergency department Medications were administered in the Emergency Department. See MAR. Historians other than the Patient: Spouse/Significant Other: . Care significantly affected by the following Social Determinants of Health: Poor access to healthcare and/or lack of insurance, Poor access to transportation, Problems related to employment. Counseling: I had a detailed discussion with the patient and/or guardian regarding the historical points, exam findings, and any diagnostic results supporting the discharge/admit diagnosis, the presence of at least one elevated blood pressure reading (>120/80) during this emergency department visit, lab results, radiology results, the need for outpatient follow up, for definitive care, a family practitioner, to return to the emergency department if symptoms worsen or persist or if there are any questions or concerns that arise at home. Medication response: Azithromycin / Augmentin. ED course: Printed out labs and CT scan for patient. Possible developing pneumonia noted in bilateral upper lobes and will cover for community-acquired pneumonia. First dose given in ER. All labs discussed with patient including negative troponin, negative BNP, normal kidney function, and no DVT or PE noted on ultrasound or CT scan. Recommended patient start taking 25 mg of hydrochlorothiazide to help with swelling. And follow-up primary care doctor. Patient is agreeable to plan and will make an appointment tomorrow.. 07/17 20:46 Order name: Basic Metabolic Panel; Complete Time: 22:00 07/17 20:46 Order name: CBC with Diff; Complete Time: 21:41 07/17 20:46 Order name: Magnesium; Complete Time: 22:00 07/17 20:46 Order name: NT PRO-BNP; Complete Time: 22:00 07/17 20:46 Order name: Troponin HS; Complete Time: 22:00 07/17 20:46 Order name: Chest Pa And Lat (2 Views) XRAY; Complete Time: 21:41 07/17 20:57 Order name: Extrem Venous W Compression [place] US; Complete Time: 21:51 07/17 20:57 Order name: CT Chest For PE Angio; Complete Time: 22:31 07/17 20:46 Order name: Cardiac monitoring; Complete Time: 21:23 07/17 20:46 Order name: EKG - Nurse/Tech; Complete Time: 21:07/17 20:46 Order name: IV Saline Lock; Complete Time: : dr5 07/17 20:46 Order name: Labs collected and sent; Complete Time: : dr5 07/17 20:46 Order name: O2 Per Protocol; Complete Time: : dr5 07/17 20:46 Order name: O2 Sat Monitoring; Complete Time: : dr5 EC/27 22:18 Rate is 77 beats/min. Rhythm is regular. QRS [place] is Normal. [place] interval is normal at dr5 174 msec. QRS interval is normal at 100 msec. Administered Medications: 22:18 Drug: Ibuprofen PO 800 mg PO once Route: PO; bm8 23:02 Follow up: Response: No adverse reaction bm8 23:01 Drug: Amoxicillin-Clavulanate PO 875 mg PO once Route: PO; bm8 23:02 Follow up: Response: No adverse reaction bm8 23:01 Drug: AZITHromycin PO 500 mg PO once Route: PO; bm8 23:02 Follow up: Response: No adverse reaction bm8 Disposition: 23:17 Co-signature as Attending Physician, Elfego Wilkinson MD I reviewed the patient's care rt provided by the Advanced Practice Provider and agree with the diagnosis and treatment plan. Disposition Summary: 07/17/24 22:35 Discharge Ordered Notes: Location: Home dr5 Condition: Stable dr5 Diagnosis - Pneumonia, unspecified organism dr5 Followup: dr5 - With: Emergency Department - When: As needed - Reason: Worsening of condition Followup: dr5 - With: Private Physician - When: 1 - 2 days - Reason: Recheck today's complaints, Continuance of care, Re-evaluation by your physician Discharge Instructions: - Discharge Summary Sheet dr5 - Community-Acquired Pneumonia, Adult dr5 Forms: - Work release form dr5 - Medication Reconciliation Form dr5 - Antibiotic Education dr5 - Patient Portal Instructions dr5 - Leadership Thank You Letter dr5 Prescriptions: - azithromycin 250 mg Oral tablet - take 1 tablet ORAL route daily for 4 days; 4 tablet; Refills: 0, Product dr5 Selection Permitted - Augmentin 875-125 mg Oral Tablet - take 1 tablet ORAL route every 12 hours for 10 days; 20 tablet; Refills: 0, dr5 Product Selection Permitted - Norvasc 5 mg Oral tablet - take 1 tablet ORAL route once daily for 30 days; 30 tablet; Refills: 0, Product dr5 Selection Permitted - Hydrochlorothiazide 12.5 mg Oral capsule - take 1 tablet ORAL route every 12 hours for 30 days; 60 tablet; Refills: 0, dr5 Product Selection Permitted Signatures: Dispatcher [employer] EDMS Elfego Wilkinson MD MD rt Deonte Moran RN RN bm8 Fabi Vela, RN RN al5 Dandy Starr, WET CLEANER MACHINE-C WET CLEANER MACHINE-Cdr5 Corrections: (The following items were deleted from the chart) 20:46 20:46 BASIC METABOLIC PANEL+C.LAB.BRZ ordered. EDMS EDMS 20:46 20:46 CBC+H.LAB.BRZ ordered. EDMS EDMS 20:46 20:46 MAGNESIUM+C.LAB.BRZ ordered. EDMS EDMS 20:46 20:46 PROBNP+C.LAB.BRZ ordered. EDMS EDMS 20:46 20:46 Troponin High Sensitivity+C.LAB.BRZ ordered. EDMS EDMS 20:46 20:46 Chest Pa And Lat (2 Views)+RAD.RAD.BRZ ordered. EDMS EDMS 20:57 20:57 Chest For PE Angio+CT.RAD.BRZ ordered. EDMS EDMS
[2024-07-17] MEDS ORDERED: AMOX/K CLAV 875 MG TAB ONE (22:46)
[2024-07-17] MEDS ORDERED: AZITHROMYCIN 250 MG TAB ONE (22:46)
--- NOTE | 2024-07-18 12:08 | EKG ---
Test Date: 2024-07-17 Test Time: 21:06:38 Gem Carver: FRANCISCO MEASUREMENT RESULTS: Intervals: Rate: 77 NE: 174 QRSD: 100 QT: 404 QTc: 457 [place]: P: 62 NE: 174 QRS: 68 T: 61 INTERPRETIVE STATEMENTS: Normal sinus rhythm Normal ECG Compared to ECG 12/11/2022 10:19:02 No significant changes Electronically Signed On 07-18-24 12:06:26 CDT by Cuba Fernandez
[2024-07-19 09:47] VITALS: BP 145/92; TEMP 97.9; O2SAT 100
== END 2024-07-17 23:03 | disposition home or self-care (01) ==
LOC: ER 20:04
DX: J18.9 Pneumonia, unspecified organism (principal); I10 Essential (primary) hypertension
CPT/HCPCS: 93005; 85025; 80048; 36415; 83735; 84484; 83880; 71275; 71046; 93970; 99285; Q9967